=== PATIENT | female | born 1955 | race African-American/Black ===

== ENCOUNTER 2018-09-24 11:01 | Emergency (ER) | payer OTHER ==
[~2018-09-24] VITALS: Ht 154.9 cm; Wt 158.8 kg
[2018-09-24 11:45] LABS: MCH 27.7 pg (26.0-34.0); MCHC 33.2 g/dL (28.0-37.0); MCV 83.4 fL (80.0-100.0); PLATELET COUNT 397 thou/uL (150-400); RBC 2.18 mil/uL (4.20-5.00); RDW 19.1 % (10.5-14.5); WBC 10.7 thou/uL (4.0-11.0)
[2018-09-24 11:53] LABS: HEMATOCRIT 18.1 % (37.0-47.0)
[2018-09-24 13:00] LABS: ABSOLUTE NEUTROPHILS 7.7 thou/uL (1.4-8.2); ATYPICAL LYMPHS 2 %; METAMYELOCYTES 1 %; MYELOCYTES 1 %
[2018-09-24 13:01] LABS: ANISOCYTOSIS 2+; POLYCHROMASIA OCCASIONAL
[2018-09-24 13:08] VITALS: BP 124/53; BP 140/55; BP 145/64; BP 170/81; BP 180/83
[2018-09-24 16:15] VITALS: BP 150/62; BP 152/80; BP 153/47; BP 154/64
[2018-09-24 17:36] VITALS: BP 136/63
--- NOTE | 2018-09-29 10:03 | H ---
[facility] [place] [address] HISTORY AND PHYSICAL Name: HEIDY BOYD Room #: DEP Elizabeth#: [id number] Admission: 09/24/18 ������������������ Attend Phys: Discharge: 09/24/18 ������������������ Date of : 57 Report #: [id number] THIS REPORT FOR: //name// CC: FAM unknown Edward Wassermanhenrique DATE OF SERVICE: 09/24/2018 CHIEF COMPLAINT: Anemia. HISTORY OF PRESENT ILLNESS: The patient is a 63-year-old female who was transferred to the ER from [facility] for treatment of anemia. She is ventilator dependent due to a respiratory illness several months ago and has failed ventilator weaning. At this point, she has chronic tracheostomy feeding tube and chronic ventilator care at the [facility] terminal [facility] care facility. They noted lab work with a hemoglobin of around 5, and she was sent to the Emergency Room for transfusion. PAST MEDICAL HISTORY: Acute on chronic hypoxic respiratory failure, obesity hypoventilation syndrome. Chronic respiratory failure, ventilator dependent, tracheostomy dependent. Obstructive sleep apnea, morbid obesity, acute kidney injury with history of chronic kidney disease. She has a brief history of requiring dialysis, which now has been discontinued Diabetes type 2. Protein-calorie malnutrition. Anemia of chronic disease, history of sepsis. PAST SURGICAL HISTORY: Unknown. FAMILY HISTORY: Unknown. SOCIAL HISTORY: Unknown. ALLERGIES: Unknown. MEDICATIONS: List from the facility is not available. REVIEW OF SYSTEMS: She is unable to give review. OBJECTIVE: VITAL SIGNS: Temperature 37.1, pulse 55, respirations 18, blood pressure 135/76, O2 sat 96% on the ventilator. GENERAL: She is asleep, opens her eyes to her name, morbidly obese, resting on the ventilator. HEAD AND NECK: Unremarkable. LUNGS: Clear. HEART: Regular. ABDOMEN: Obese, soft, normoactive bowel sounds and PEG. [facility] [address] [place] [address] HISTORY AND PHYSICAL Name: HEIDY BOYD Room #: DEP [facility]#: [id number] Admission: 09/24/18 ������������������ Attend Phys: Discharge: 09/24/18 ������������������ Date of : 57 Report #: [id number] EXTREMITIES: 1+ edema. NEUROLOGIC: She moves extremities globally. Strength is about 3/5. Hemoglobin is 6. ASSESSMENT: 1. Anemia of chronic disease. 2. Chronic ventilator dependence. 3. Morbid obesity. 4. Chronic kidney disease. PLAN: She received 2-unit blood transfusion and then returned to the care facility for continued ventilator care. ��������������������������������������������� <ELECTRONICALLY SIGNED> ���������������������������������������� By: Justin Murphy MD ��������������������������������������������� 09/29/18 1003 [id number] [id number] Justin Murphy MD /nt
== END 2018-09-24 19:30 ==
LOC: ER 11:01
PROVIDERS: Emergency Medicine
DX: E11.22 Type 2 diabetes mellitus with diabetic chronic kidney disease (principal); N18.9 Chronic kidney disease, unspecified; D63.1 Anemia in chronic kidney disease; E66.01 Morbid (severe) obesity due to excess calories; G47.33 Obstructive sleep apnea (adult) (pediatric)

== ENCOUNTER 2018-09-28 08:29 | Inpatient (IN) | payer OTHER ==
[~2018-09-28] VITALS: Ht 160 cm; Wt 200.9 kg
--- NOTE | ~2018-09-28 | D ---
[facility] [place] [address] DISCHARGE SUMMARY Name: HEIDY BOYD Room #: 351-P [facility] IN .R.#: [id number] Admission: 09/28/18 Attend Phys: Altaf Hay MD Discharge: 10/14/18 Date of : 57 Report #: [id number] THIS REPORT FOR: //name// CC: Jose Hay DATE OF SERVICE: 10/14/2018 FINAL DIAGNOSES: 1. PEG tube malfunction. 2. Gastroparesis. 3. Chronic hypoxic respiratory failure. 4. Obesity hypoventilation syndrome. 5. Ventilator dependence. 6. Anemia of chronic disease. 7. Morbid obesity. 8. Hypertension. 9. Severe protein-calorie malnutrition. 10. Abdominal wall infection. PROCEDURES: 1. IR replacement of PEG tube. 2. Abdominal wall ultrasound. HOSPITAL COURSE: The patient was admitted from her long-term care ventilator unit for evaluation of a PEG tube malfunction. Initial concern was infection along the abdominal wall. Neither KUB nor abdominal wall ultrasound confirmed a mass or abscess. She was treated with empiric antibiotics. It was clear that there was bile type gastric drainage through the PEG stoma. She was followed by the Surgery and GI services. Ultimately their decision, there was a significant degree of gastroparesis and she failed medical treatment with Reglan and erythromycin. The recommendation was IR exchange the PEG tube for a combination of J-tube, G-tube which was performed. She tolerated the tube feeding through the J-tube. She continued to have drainage through the PEG stoma. PEG per the gastric port was connected to suction, which seemed to help control it. She had intermittent fevers and was followed by the Infectious Disease and antibiotics were ordered accordingly. She had a followup fever and there was gram-positive cocci growing from the blood. Vancomycin was added. She was not weanable from the ventilator, but followed by the Pulmonary Service there was concern about the tracheostomy cuff leak, but she was seen by ENT and they did not recommend changing at this point as she was ventilating adequately. She received 3 units of blood transfusion. Hemoccults were never obtained despite orders. GI did not feel endoscopy was indicated. Overall, her condition remained marginal and guarded prognosis given her respiratory failure and morbid obesity. DISPOSITION: She is being transferred to [facility] facility under the care [address] [address] DISCHARGE SUMMARY Name: HEIDY BOYD Room #: 351-P [facility] IN .R.#: [id number] Admission: 09/28/18 Attend Phys: Altaf Hay MD Discharge: 10/14/18 Date of : 57 Report #: [id number] Rosalio Gonzalez. She will be followed by Pulmonary, ID and Internal Medicine. She continues J-tube feedings with G-tube to suction. I have signed her transfer medications and orders for ventilator care and antibiotics. Her prognosis is poor. By: [id number] Justin Murphy MD /guillermo
[2018-09-28 08:30] VITALS: BP 151/70
[2018-09-28] MEDS ORDERED: LEVEMIR SUBQ (09:02)
[2018-09-28] MEDS ORDERED: GLUCOSE BITS1 GM PO (09:03)
[2018-09-28] MEDS ORDERED: GLUTOSE GEL 1515 G1 PO (09:03)
[2018-09-28] MEDS ORDERED: GLUCAGEN1 M2 INJECTION (09:04)
[2018-09-28] MEDS ORDERED: PEPCID20 MG PER TUBE (09:04)
[2018-09-28] MEDS ORDERED: ASPIR 8181 MG PER TUBE (09:04)
[2018-09-28] MEDS ORDERED: TOPROL XL25 MG PER TUBE (09:05)
[2018-09-28] MEDS ORDERED: PREDNISONE 5 MG5 M1 PER TUBE (09:05)
[2018-09-28] MEDS ORDERED: VANCO 1 GR1 GM/250 M IVPB (09:06)
[2018-09-28] MEDS ORDERED: VALPROIC A250 MG/51 PER TUBE (09:06)
[2018-09-28] MEDS ORDERED: ATIVAN0.5 MG PER TUBE (09:07)
[2018-09-28] MEDS ORDERED: ENOXAPARIN40 MG/0.1 SUBQ (09:08)
[2018-09-28] MEDS ORDERED: DIPHEDRYL12.5 MG/2 PER TUBE (09:09)
[2018-09-28] MEDS ORDERED: MAPAP500 MG/15 PER TUBE (09:09)
[2018-09-28] MEDS ORDERED: IPRATROPIU0.2 MG/1 M INH (09:10)
[2018-09-28 09:25] LABS: HEMATOCRIT 22.1 % (37.0-47.0); HEMOGLOBIN 7.2 gm/dL (12.0-15.0); MCH 27.2 pg (26.0-34.0); MCHC 32.3 g/dL (28.0-37.0); MCV 84.1 fL (80.0-100.0); PLATELET COUNT 347 thou/uL (150-400); RBC 2.63 mil/uL (4.20-5.00); RDW 18.7 % (10.5-14.5); WBC 11.9 thou/uL (4.0-11.0)
[2018-09-28 09:33] LABS: CALCIUM 8.8 mg/dL (8.5-10.1); CREATININE 0.8 mg/dL (0.6-1.0); POTASSIUM 4.5 mmol/L (3.5-5.1)
[2018-09-28 09:51] LABS: ABSOLUTE NEUTROPHILS 9.4 thou/uL (1.4-8.2); ANISOCYTOSIS 1+; ATYPICAL LYMPHS 1 %; LARGE PLATELETS OCCASIONAL
[2018-09-28 09:52] LABS: POLYCHROMASIA OCCASIONAL
[2018-09-28 17:50] VITALS: BP 151/81
[2018-09-28 19:04] VITALS: BP 153/85
--- NOTE | 2018-09-28 19:50 | NUR ---
PATIENT ADMIT TO UNIT AT 1800. A/O ON VENT A/C. ANXIOUS. WILL KEEP MONITOR.
[2018-09-28] MEDS ORDERED: DILAUDID 2 MG TA2 MG (22:34)
[2018-09-28 23:37] VITALS: BP 153/72
[2018-09-29 03:34] VITALS: BP 153/71
--- NOTE | 2018-09-29 04:27 | NUR ---
FINISHED ADMISSION PROCESS AND MED REC ACCORDING TO PAPERWORK SENT FROM [facility]. PT DID NOT HAVE ANY MEDICATIONS. DAUGHTER OF PATIENT WAS AT NURSES STATION 2x BEFORE 2100 ASKING FOR PAIN MEDICATION AND ANXIETY MEDICATION. CALL WAS PLACED TO DR. HUIZAR. RECEIVED ORDERS FOR LORAZEPAM IV 0.25 Q6 AND NS FOR 75ML. GAVE 1X DOSE OF LORAZEPAM AND PT RESTED COMFORTABLY ON VENT UNTIL ABOUT 2445 AND BECAME VERY LOUD. MOST OF THE WORDS WERE NOT UNDERSTANDABLE. AT 0145 GAVE DOSE OF LORAZEPAM AND PT WENT BACK TO SLEEP. JESUS ALBERTO IN PLACE. DR. MCKEON CAME BY FOR CONSULT AND ORDERS PLACED FOR X RAY IN THE AM. CHANGED LUBER CAPS ON PICC THEY WERE FILLED WITH DRIED BLOOD AND TAPE. PICTURES OF WOUNDS DOCUMENTED AND WOUND CARE CONSULTED. JESUS ALBERTO IN PLACE. HOURLY ROUNDING.
--- NOTE | 2018-09-29 06:45 | NUR ---
0600 BLOOD SUGAR RESULTED IN 57, PLACED PT ON HYPOG PROTOCOL, GAVE PT 100ML OF D10. RECHECKED AFTER INFUSED 20 MIN LATER. BLOOD SUGAR 73. FOLLOWING PROTOCOL. WILL PASS THIS INFORMATION TO NEXT SHIFT.
[2018-09-29 07:29] VITALS: BP 175/89
[2018-09-29 11:20] VITALS: BP 171/77
--- NOTE | 2018-09-29 12:00 | NUR ---
Nutrition: RD recommends Vital High Protein formula for PEG feedings, when safe to resume G-tube use per provider discretion, as [facility] does not carry pt's usual formula Promote with Fiber. Per facility, goal rate is 45 ml/hr. When given OK to resume PEG feeds, consider starting at 1/2 goal rate (~20 ml/hr) and increase if tolerating after 6-8 hrs to goal of 45 ml/hr with 100 ml water flushes q 4 hrs.
[2018-09-29 15:33] VITALS: BP 167/101
--- NOTE | 2018-09-29 15:58 | NUR ---
INITIAL ASSESSMENT: Received consult due to pt beind admitted from [facility]. SW reviewed chart and spoke with nursing. Pt was admitted due to abdominal wall abscess/sepsis. ID and surgery consulted. Pt with hx of chronic hypoxic respiratory failure. Pt has trach and peg in place and is vent dependent. Pt's dtr states that pt was originally at [facility] and then discharged [facility] and then went to [facility] before discharging to [facility] then the SNF. Per Erika, pt was in the SNF at [facility] for rehab services, with the plan to return to LTAC for continued vent weaning in the future. Pt's dtr confirms plan to return to [facility] when medically stable. SW is following to assist as needed with discharge planning.
--- NOTE | 2018-09-29 17:25 | NUR ---
ASSUMED CARE OF PT AT 0700. PT ALERT AND ORIENTED X2 - AWARE SHE IS IN HOSPITAL - COMPLAINS OF GENERALIZED PAIN AND ANXIETY. MOVED TO BARIATRIC BED. INTERDRY APPLIED TO FOLDS. OK BY SURGERY AND HOSPITALIST TO RESUME TUBE FEED. CURRENTLY RUNNING AT HALF RATE. SOME TUBE FEED LIKE DRAINAGE FROM ABDOMINAL WOUND. DRESSED WET TO DRY WITH SALINE GAUZE. SUCTIONED PRN - SCANT SECRETIONS. TEMP MAX 99.6. BLOOD SUGARS WELL CONTROLLED. WILL CONT TO MONITOR.
[2018-09-29 19:45] VITALS: BP 184/97
--- NOTE | 2018-09-29 20:25 | HC ---
[facility] [place] [address] CONSULTATION Name: HEIDY BOYD Room #: 351-P ADM IN M.R.#: [id number] Admission: 09/28/18 Attend Phys: Altaf Hay MD Discharge: Date of : 57 Report #: [id number] THIS REPORT FOR: //name// CC: Jose Hay DATE OF SERVICE: 09/28/2018 INFECTIOUS DISEASE CONSULTATION REASON FOR CONSULTATION: I was asked to evaluate concerning fever, increased swelling with no drainage from her left abdomen. HISTORY OF PRESENT ILLNESS: The patient is a 63-year-old morbidly obese woman, over 500 pounds with chronic venous stasis disease that is including most of her left side, for the patient lies on that side continuously. She is ventilatory dependent, was hospitalized on 09/24/2018 with anemia, received blood transfusion, was transferred back to [facility]. She has been on vancomycin. I am unclear as to the duration and indication. She developed increased fever, chills associated with drainage from her left abdomen. Two wounds have developed with a moderate amount of drainage. Going back a month ago, she was transferred from [facility] to [facility]. It was evident that she had dislodged her PEG tube in transit. Tube feeding was held and she was ultimately transferred to [facility], where she had the PEG tube revised. Family states that she underwent surgical treatment, but I am unclear as to the specifics of this. Subsequently, now she is draining from her left abdomen. She denies any significant pain. She has had intermittent fever. Remains stable on 30% FiO2 on the ventilator. She has obstructive sleep apnea and hypoventilation syndrome. She has a previous history of acute renal failure that did require dialysis, now has stable renal function. REVIEW OF SYSTEMS: The patient also has a PICC in her right upper extremity and indwelling Montalvo catheter. The 10-point review of systems was otherwise negative other than what is described above. PAST MEDICAL HISTORY: Respiratory failure; obesity; previous renal failure; diabetes; malnutrition; anemia of chronic disease; chronic lymphedema, predominantly on her left side. ALLERGIES: None known. MEDICATIONS: As noted on her MAR that were reviewed including vancomycin. She was given Zosyn in the Emergency Room. She is also on prednisone 5 mg a day. FAMILY HISTORY: Noncontributory. [address] [address] CONSULTATION Name: HEIDY BOYD Room #: 351-P [facility] IN .R.#: [id number] Admission: 09/28/18 Attend Phys: Altaf Hay MD Discharge: Date of : 57 Report #: [id number] SOCIAL HISTORY: Nonsmoker, no significant alcohol intake. PHYSICAL EXAMINATION: VITAL SIGNS: Currently, afebrile with temperature up to 101.2 degrees, hemodynamically stable on 30% FiO2, tracheostomy, morbidly obese with very large left breast with pitting edema. Left abdominal pannus with pitting edema and two sinus tracts with perez drainage from them, has characteristics of tube feeding in color. Markedly indurated left abdomen. Unable to roll her over in the bed due to her size. No other lesions noted. No palpable adenopathy. HEENT: Eyes without scleral icterus. Mouth without mucositis. Tracheostomy was midline without erythema or drainage. LUNGS: Decreased breath sounds bilaterally. HEART: Decreased heart tones due to her obesity. ABDOMEN: Nontender. PEG site was without drainage, tube measured at marked 7 on the tube. Also had hernia in periumbilical region, which I was unable to reduce. EXTREMITIES: Without clubbing or cyanosis. NEUROLOGIC: Mood was normal. The patient was able to talk over her trach. LABORATORY STUDIES: Sodium 137, potassium 4.5, bicarbonate 33, creatinine 0.8. Lactate 0.8. Hemoglobin 7.2, WBC 11.9, platelets 347,000, 79% neutrophils, 18% lymphs. Blood cultures are pending. Abdominal sinus tract culture pending. Chest x-ray, bilateral perihilar infiltrates. IMPRESSION: 1. A 63-year-old morbidly obese woman with chronic respiratory failure. 2. Abdominal wall abscess, concerning for possible intra-abdominal connection due to her previous PEG tube issues. It is also possible that all this was above the fascia from her previous PEG tube issue and is now draining out. Other consideration would be malpositioning of her current tube, although the patient does not act like she has peritonitis on examination. She does not appear toxic, although she is running low-grade fever and has a very mild leukocytosis. 3. Diabetes. 4. Morbid obesity. 5. Chronic lymphedema involving the left chest and abdomen. RECOMMENDATIONS: I have discussed in detail with Emergency Room staff. General Surgery has been consulted. The patient is too big to go into a CT scanner, might be best to give some contrast through the PEG tube and just assess her upper GI tract a bit before further intervention. Otherwise, could also do a sinogram to the left abdomen if necessary. Hopefully, this is all extraperitoneal collection and will be able to manage this with incision and drainage of the abdominal wall. She also has ventral hernia that will need to [facility] [address] [place] [address] CONSULTATION Name: HEIDY BOYD Room #: 351-P ADM IN .R.#: [id number] Admission: 09/28/18 Attend Phys: Altaf Hay MD Discharge: Date of : 57 Report #: [id number] be assessed. We will control diabetes. Continue with broad antibiotic coverage pending culture results. <ELECTRONICALLY SIGNED> By: Bandar Gonzalez MD 09/29/18 2025 [id number] [id number] Bandar Gonzalez MD /nt
--- NOTE | 2018-09-30 00:55 | NUR ---
PT AGGITATION INCREASING THROUGHOUT SHIFT. PT PULLING AT TELE LINES, CONTINOUS PULSE OX LINE, AND TRACH TUBE. PT BECOMING MORE VOCAL AND BUCKING THE VENT, TO WHERE IT ALARMS. CALLED DR. STATON TO GET ANXIETY MEDICATION AND RESTARTING PT VALPROIC ACID. RECEIVED ORDERS AND RESTARTED BOTH. WILL CONTINUE TO ASSESS.
[2018-09-30 03:29] LABS: HEMATOCRIT 21.4 % (37.0-47.0); MCH 27.8 pg (26.0-34.0); MCHC 32.8 g/dL (28.0-37.0); MCV 84.8 fL (80.0-100.0); RBC 2.53 mil/uL (4.20-5.00); WBC 10.1 thou/uL (4.0-11.0)
[2018-09-30 03:34] LABS: CALCIUM 8.9 mg/dL (8.5-10.1); CREATININE 0.7 mg/dL (0.6-1.0); POTASSIUM 3.9 mmol/L (3.5-5.1)
[2018-09-30 04:36] VITALS: BP 181/97
[2018-09-30 07:32] VITALS: BP 182/85
--- NOTE | 2018-09-30 09:04 | H ---
[facility] [place] [address] HISTORY AND PHYSICAL Name: HEIDY BOYD Room #: 351-P ADM IN M.R.#: [id number] Admission: 09/28/18 Attend Phys: Altaf Hay MD Discharge: Date of : 57 Report #: [id number] THIS REPORT FOR: //name// CC: Jose Hay DATE OF SERVICE: 09/28/2018 CHIEF COMPLAINT: Abdominal pain. HISTORY OF PRESENT ILLNESS: The patient was sent back from her long-term care ventilator unit for evaluation of abdominal pain. She has a longstanding respiratory failure patient who has failed ventilator weaning and is confined to bed with a tracheostomy tube ventilator and PEG tube. She was briefly hospitalized for a blood transfusion last week due to anemia of chronic disease. The staff noted some swelling of her abdominal wall in the left lower quadrant and some drainage around the PEG tube. There was concern of infection or the tube being in place and she was sent to the Emergency Room. So far, she has been evaluated by the surgical staff and ID. KUB with Gastrografin study has been performed, which shows the PEG tube to be within the stomach and there was no mention of leakage of contrast from the stomach. PAST MEDICAL HISTORY: As above. FAMILY HISTORY: Unknown. SOCIAL HISTORY: Unknown. ALLERGIES: Per the prison list. MEDICATIONS: See the prison list. REVIEW OF SYSTEMS: She complains of generalized pain. She talks over the ventilator. Denies chest pain or vomiting. PHYSICAL EXAMINATION: VITAL SIGNS: See the nursing notes. GENERAL: She is awake and alert. HEAD AND NECK: Unremarkable with trach in place. LUNGS: Clear. HEART: Regular. ABDOMEN: Obese, soft, normoactive bowel sounds. There is purulent type drainage from the gastric PEG stoma. EXTREMITIES: Showed no edema. NEUROLOGIC: She moves all extremities. [facility] [address] [place] [address] HISTORY AND PHYSICAL Name: HEIDY BOYD Room #: 351-P [facility] IN [facility]#: [id number] Admission: 09/28/18 Attend Phys: Altaf Hay MD Discharge: Date of : 57 Report #: [id number] ASSESSMENT: 1. Abdominal wall infection. 2. Chronic ventilator dependence. 3. Chronic hypoxic respiratory failure. 4. Obesity hypoventilation syndrome. 5. Anemia of chronic disease. PLAN: We will continue IV antibiotics and local wound care. She has had a small incision, debridement at the bedside from the surgical team and we will allow them for followup. Further discussions with them regarding additional workup are indicated. <ELECTRONICALLY SIGNED> By: Justin Murphy MD 09/30/18 0904 [id number] 1526 Justin Murphy MD /nt
--- NOTE | 2018-09-30 09:58 | NUR ---
DISCHARGE PLANNING. PATIENT ADMITTED FROM [facility] UNIT. PLAN IS FOR PATIENT TO RETURN TO [facility] ONCE MEDICALLY READY. CLINICAL INFORMATION FAXED TO [facility] INTAKE LIAISON. UNIT SW AWARE. FOLLOWING TO ASSIST.
--- NOTE | 2018-09-30 13:34 | NUR ---
SW reviewed chart and spoke with nursing. Pt to have ultrasound today and may need further I&D. Clinical updates faxed over to [facility] for review. Plan is for pt to return to [facility] SN[facility] when medically stable. ERON is following to assist as needed with discharge planning.
[2018-09-30 15:40] VITALS: BP 174/81
[2018-09-30 19:45] VITALS: BP 163/91
--- NOTE | 2018-09-30 19:48 | NUR ---
pt is continuing on vent at CMV mode , o2 30%, pt knows her name and person, but pt is agitation at germán, pt's vs and o2sat are stable , RN has reproted DR pt's tube feeding is leaking arund the PEG site, KUB has done, new order, hold tbe feeding and per tube medications, pt starts IV flud and continuing IV abt, pt's family stay at bedside.
[2018-09-30 23:21] VITALS: BP 149/78
--- NOTE | 2018-09-30 23:46 | NUR ---
ASSUMED CARE AT 1900, START OF SHIFT ASSESSMENT COMPLETED. PT AGITATED AND RESTLESS, PULLING AT TRACH AND J-TUBE, PULLING GOWN OFF, AND RESISTANT TO STAFF CARES. DID NOT WANT TO BE TURNED BECAUSE SHE C/O LEG PAIN. HAD A LARGE LIQUID BM; COMPLETE BED CHANGE AND BATH COMPLETED. GIVEN IV ATIVAN FOR AGITATION. TRACH IN PLACE, SMALL AMOUNT OF THICK SPUTUM SUCTIONED. IV FLUIDS INFUSING; GRANDA DRAINING CLEAR YELLOW URINE. PURULENT DRAINAGE AT LEFT ABD WOUND. YELLOW-WHITE DRAINAGE AROUND J-TUBE; PER KUB TUBE IS PROPERLY IN PLACE AND PER DR. ISSA' NOTE, IT IS OK TO USE. GAVE HS MEDS VIA TUBE, NO RESIDUAL, BUT DID NOT RESUME TUBE FEEDING. MIDNIGHT ASSESSMENT, PT MORE CALM AND PULLING LESS AT TUBES. C/O MID BACK PAIN, GIVEN DOSE OF IV DILAUDID. PT RESTING MORE COMFORTABLY AT THIS TIME. WILL CONTINUE TO MONITOR.
[2018-10-01 05:10] VITALS: BP 140/88
[2018-10-01 07:32] VITALS: BP 194/86
[2018-10-01 11:17] VITALS: BP 186/92
--- NOTE | 2018-10-01 12:12 | NUR ---
ERON reviewed chart and spoke with nursing and attending physician. Pt is slowly progressing towards goals for discharge. ERON discussed case with [facility] liaison. Plan is for pt to return to [facility] when medically stable for discharge. ERON received message from pt's dtr, Erika, requesting documentation from [facility] to provide to pt's bank. Erika is needing to pay pt's bills. Pt has DPOA ppwk that was completed at [facility]. The bank is still requesting documentation to clarify pt's current condition and location. ERON discussed with Director of Case Mgmt. ERON is following to assist as needed with discharge planning.
[2018-10-01 15:42] VITALS: BP 158/82
--- NOTE | 2018-10-01 18:19 | NUR ---
Assumed care approx. 0700 this AM. Patient agitated, restless, and tearful much of the shift. Patient placed on restraints at 1600 today as she pulled out her PEG tube, and was attempting to pull on her trach and central line. A message was left with family to call the nurse back for updates when available. Patient given a onetime dose of haldol per orders, then IV dilaudid and ativan orders were reinitiated for agitation and pain per Dr. Murphy. An order was given to restart fluids patient was previously on until tube feed was restarted but YAMILA Mendez ordered a KUB and showed proper placement of PEG tube so feeding was restarted and H20 flushes given; therefore, fluids were not restarted. Dr. Peña and YAMILA Mendez were at bedside post peg tube removal to assess the situation, and agreed it was safe to restart feedings after the KUB x-ray. Patient on 30% FiO2 and tolerates well. O2 sats remain adequate when patient isn't getting worked up and trying to speak. Patient oriented to person only and very confused much of the shift. Wounds on left calf and LUQ of abd assessed, pictures taken today. See wound care interventions for info. Tube feed restarted at 30 mls/hr per YAMILA Mendez. Will pass on to rn shift mgr to advance by 10 mls/hr as tolerated as the order states. Q4H flushes and meds given through peg tube. Patient appears to be tolerating well, although there remains to be yellowish drainage from peg site. Fall precautions in place. Slow progression toward plan of care goals.
[2018-10-01 19:20] VITALS: BP 189/111
[2018-10-01 21:03] VITALS: BP 193/90
[2018-10-02 00:10] VITALS: BP 152/82
[2018-10-02 03:49] VITALS: BP 188/86
--- NOTE | 2018-10-02 05:39 | NUR ---
ASSUMED CARE AT 1900, ASSESSMENTS COMPLETED PER PROTOCOL. PT STABLE ON VENT, MAINTAINING SATS IN HIGH 90'S, FREQ SUCTION FOR THICK SECRETIONS, ORAL CARE COMPLETED REGULARLY; PT NOTED TO HAVE MORE COARSE THROAT SOUNDS THIS AM COMPARED TO EARLIER IN SHIFT. BP ELEVATED EARLY IN SHIFT, PT RECEIVED SCHEDULED DOSE METOPROLOL AND PRN IV PAIN MEDICATIONS WHICH REDUCED BP. REDUCED LEAKAGE FROM AROUND THE PEG SITE, BUT DOES INCREASE AFTER A TURN; INCREASED RATE OF TUBE FEEDING TO 40 ML/HR AT MIDNIGHT; Q4 HOUR WATER FLUSHES WITH BENOPROTEIN SUPPLEMENT, Q6 BLOOD SUGARS STABLE. TWO LIQUID BM'S OVERNIGHT. IV ABX INFUSING ORDERED. NO OTHER CONCERNS, WILL CONTINUE TO MONITOR.
[2018-10-02 07:24] VITALS: BP 179/95
--- NOTE | 2018-10-02 12:52 | NUR ---
SW reviewed chart and spoke with nursing and attending physician. Pt is progressing towards goals for discharge. Pt to have video swallow today. Discharge back to [facility] is anticipated for tomorrow. SW updated [facility] liaison. SW is following to assist as needed with discharge planning.
--- NOTE | 2018-10-02 15:28 | NUR ---
ASSUME CARE FOR PATIENT AT 0700. PATIENT HAD VIDEO SWALLOW WITH SPEECH THERAPY TODAY AND PASSED. PATIENT HAS HAD LIMITED SECRETIONS WITH SUCTIONING. CONTINUED ANTIBIOTIC THERAPY, ERTHROMYCIN, AND FLUIDS TODAY SUCCESSFULLY. CONTACTED IV TEAM IN REGARDS TO CENTRAL LINE, TWO LUMENS HAD NO BLOOD RETURN. IV TEAM INFORMED ME SHE WOULD VISIT THE PATIENT TODAY. PHYSICIANS CONTINUE TO SUSPECT DRAINAGE FROM PEG TUBE SITE ARE FROM PREVIOUS REVISION AFTER ANOTHER XRAY YESTERDAY SHOWED THE PEG TUBE CORRECTLY PLACED. PATIENT REACHED GOAL OF 50ML/HR FOR TUBE FEEDING. CASE MANAGEMENT ANTICIPATES DISCHARGE TO [facility] SOON (LTAC), MAGDALENA FROM [facility] CALLED TODAY AND I TOLD HER THAT DISCHARGE TOMORROW IS POSSIBLE.
[2018-10-02 15:43] VITALS: BP 146/92
[2018-10-02 19:20] VITALS: BP 167/73
[2018-10-03] VITALS (7 sets, daily range): BP systolic 147–198; BP diastolic 65–104
--- NOTE | 2018-10-03 01:24 | NUR ---
PATIENT IS ALERT TIMES PERSON AND PLACE. PATIENT CAN BE IMPULSIVE AND PULL AT EQUIPMENT. RESTRAINTS IN PLACE. PATIENT HAS A TRACH AND IS ON THE VENT. PATIENT HAS PEG TUBE WITH TUBE FEED GLUCERNA 1.2 RUNNING AT 50ML/HR. PATIENT HAS 150ML Q4H WITH BENEPROTIEN. PATIENT IS Q 2 TURN. BATH WAS GIVEN ORAL CARE Q2H. PATIENT IS INCONTIENT AND HAS A GRANDA. PATIENTS PAIN IS TREATED WITH PAIN MEDICATION. PATIENT REFUSED SCDS "THEY ARE TO PAINFUL". PATIENT IS Q6H ACCUCHECKS. LBM WAS THE 8TH. PATIENT IS RESTING COMFORTABLY IN BED. WCM. PATIENT IS PRGRESSING TO GOALS. PLAN TO DC TODAY.
[2018-10-03 03:47] LABS: MCH 27.6 pg (26.0-34.0); MCHC 32.5 g/dL (28.0-37.0); MCV 84.9 fL (80.0-100.0); RBC 2.15 mil/uL (4.20-5.00); RDW 18.5 % (10.5-14.5)
[2018-10-03 03:49] LABS: HEMATOCRIT 18.2 % (37.0-47.0); HEMOGLOBIN 5.9 gm/dL (12.0-15.0)
[2018-10-03 03:55] LABS: CALCIUM 8.2 mg/dL (8.5-10.1); CREATININE 0.7 mg/dL (0.6-1.0); POTASSIUM 3.4 mmol/L (3.5-5.1)
--- NOTE | 2018-10-03 07:39 | NUR ---
PATIENT VOMIT DARK YELLOW FLUID. PEG TUBE FEEDING STOPPED RESIDUALS NEGATIVE. PATIENT SPIKED A TEMP 100.6. BP ELEVATED. PROVIDER NOTIFED. MEDICATIONS ORDERED. PASSED ON REPORT. WCM.
[2018-10-03] MEDS ORDERED: IPRATROPIU0.2 MG/1 M INH (11:25)
[2018-10-03] MEDS ORDERED: VANCO 1 GR1 GM/250 M IVPB (11:26)
[2018-10-03] MEDS ORDERED: AMPICILLIN-SULB3 GM IV (11:26)
[2018-10-03] MEDS ORDERED: REGLAN 10 MG TA10 MG PO (11:27)
[2018-10-03] MEDS ORDERED: [UNRECOGNIZED DRUG - OTHER] IV (11:28)
[2018-10-03] MEDS ORDERED: LOPRESSOR100 M1 PER TUBE (11:28)
[2018-10-03] MEDS ORDERED: SEROQUEL 25 MG25 M1 PER TUBE (11:29)
[2018-10-03] MEDS ORDERED: DILAUDID 2 MG TA2 MG PO (11:29)
--- NOTE | 2018-10-03 15:20 | NUR ---
ERON reviewed chart and spoke with nursing and attending physician. Pt medically stable for discharge to LT[facility] today. [facility] liaison onsite this morning and confirmed they are able to accept today. Discharge orders/summary completed. Clinical updates requested by [facility] campa and faxed by traffic and transport planner. ERON notified by [facility] that pt does not meet LTAC criteria any longer. They would accept pt back to the SNF on Saturday. Pt will need to be out of restraints. Pt needs one more week of IV abx per ID. ERON discussed case with ID physician and attending physician. Restraints to be discontinued later this afternoon. Pt will be re-evaluated on Saturday. ERON discussed case with Director of Case Mgmt. ERON spoke with pt's dtr, Erika, via phone to provide update and notify of anticipated discharge back to [facility] planned for Saturday. Erika is aware and agreeable with discharge plan. ERON is following to assist as needed with discharge planning.
--- NOTE | 2018-10-03 16:17 | NUR ---
ASSUMED CARE OF PATIENT AT 0700. PATIENT REPORTEDLY VOMITED A COUPLE TIMES LAST NIGHT AND VOMITED AGAIN SHORTLY AFTER THE BEGINING OF SHIFT. SINCE THEN THE NAUSEA HAS SEEMINGLY BEEN WELL CONTROLLED WITH ZOFRAN. PATIENT HAD ULTRASOUND TODAY THAT DID NOT SHOW ANY RESIDUAL FLUID OR ANY UNEXPECTED MASS. PATIENT ALSO HAD KUB TODAY. PATIENT RESUMED TUBE FEEDING TODAY AT 25ML/HR. PATIENT HAD 1 BOWEL MOVEMENT IN THE BED AND NURSING STAFF HELPED CLEAN HER AND THE BED. RESTRAINTS HAVE BEEN DISCONTINUED SO THAT PATIENT MAY BE DISCHARGED BY SATURDAY TO [facility] ([facility] PATIENT HAS BEEN STABLE WITH TRACH BUT R/T AND ENT SAID IT WOULD BE BETTER IF IT WAS REPLACED. ENT, RT, NURSING STAFF ATTEMPTED REPLACEMENT OF TRACH TODAY BUT WERE UNSUCCESSFUL AND DECIDED TO LEAVE CURRENT ONE IN.
[2018-10-04 04:37] LABS: HEMATOCRIT 24.5 % (37.0-47.0); HEMOGLOBIN 7.9 gm/dL (12.0-15.0); MCH 26.8 pg (26.0-34.0); MCV 83.7 fL (80.0-100.0); RBC 2.93 mil/uL (4.20-5.00); RDW 17.8 % (10.5-14.5); WBC 15.3 thou/uL (4.0-11.0)
[2018-10-04 04:38] VITALS: BP 165/70
--- NOTE | 2018-10-04 05:45 | NUR ---
PATIENT IS ADVANCING SLOWLY IN HER CARE PLAN. VITAL SIGNS STABLE. NURSE PERCEIVED AND TREATED PAIN ON BEHALF OF PATIENT. ORIENTED TO SELF AND CONFUSED, PATIENT IS UNABLE TO PARTICIPATE IN CARE OR CALL APPROPRIATELY FOR NEEDS. PATIENT REMAINS IMPULSIVE AND HAS TO BE RE DIRECTED OFTEN TO AVOID PULLING ON MEDICAL EQUIPMENT. BREATHING STABLE ON VENTILATOR EVIDENCED BY CONTINUOUS SATURATION MONITOR. CONTINUE PLAN OF CARE.
[2018-10-04 07:17] VITALS: BP 167/67
[2018-10-04 11:16] VITALS: BP 180/82
[2018-10-04 15:00] VITALS: BP 156/71
--- NOTE | 2018-10-04 16:42 | NUR ---
PT HAD RESP DISTRESS THIS AFTERNOON. 02 SAT WENT DOWN TO 35% TRACH VENT. PT BECAME UNRESPONSIVE. CODE BLUE CALLED.. PT STARTED TO COME AROUND AFTER BEING BAGGED FOR ABOUT 10MIN. PT SUCTIONED, STAT CHEST XRAY DONE (SEE REPORT). PT BACK TO BASELINE NOW. NOTIFIED NNO GIVEN. WILL CONTINE TO MONITOR.
[2018-10-04 20:13] VITALS: BP 150/78
--- NOTE | 2018-10-04 23:19 | NUR ---
LARGE AMOUNT OF OUTPUT FROM GASTRIC TUBE, PER DEPENDENT DRAINAGE TONIGHT. 800 ML OF PURULENT GREEN FLUID WITH CHUNCKS OF DARK GREEN PIECES. PT IS HAVING NO PAIN AND IS NOT NAUSEAOUS.
--- NOTE | 2018-10-05 00:31 | NUR ---
CONTINUE TO HOLD TUBE FEED. SHE HAS HAD HER MEDICATIONS PER TUBE TONIGHT. CLAMPED THE TUBE WHILE SHE ABSORBS THE MEDICATION. CONTINUES TO NEED SUCTIONING FREQUENTLY. SHE HAS HAD NO PAIN TONIGHT, AND HAS NOT RECIEVED ANY PAIN MEDICATION.
[2018-10-05 05:12] LABS: HEMATOCRIT 22.1 % (37.0-47.0); MCH 26.8 pg (26.0-34.0); MCHC 31.7 g/dL (28.0-37.0); MCV 84.6 fL (80.0-100.0); RBC 2.62 mil/uL (4.20-5.00); RDW 17.5 % (10.5-14.5); WBC 14.1 thou/uL (4.0-11.0)
[2018-10-05 05:32] LABS: CALCIUM 8.5 mg/dL (8.5-10.1); CREATININE 0.6 mg/dL (0.6-1.0); POTASSIUM 3.3 mmol/L (3.5-5.1)
[2018-10-05 05:57] VITALS: BP 150/82
--- NOTE | 2018-10-05 06:19 | NUR ---
continues on 40 fio2 on venilator. she is comfortable with her breathing. however, she needs frequent suctioning for large amount of sputum. turned and sheet changed under her and backside cleaned. she complained of some pain after her turning, gave her per tube hydromorphone and clamped tube after. continues to have large amounts of green fluid into stomach. when she is layed down flat her pegtube leaks some purlent fluids around site. progressing very slowly toward discharge goals.
[2018-10-05 07:13] VITALS: BP 121/62
[2018-10-05 11:33] VITALS: BP 140/50
[2018-10-05 15:16] VITALS: BP 144/62
--- NOTE | 2018-10-05 16:32 | NUR ---
Assumed care approx. 0700 this AM. Patient was calm and oriented to person/place this morning, but since then has become increasingly agitated throwing pillows and blankets while yelling out and crying. Patient remains very confused and forgetful of her situation. Patient titrated back down from 40% to 30% FiO2 since shift change this AM. Patient O2 sats remain high 90's to 100%. Dr. Hernandez and Dr. Murphy gave verbal orders to remain holding the tube feed and water flushes. Dr. Murphy ordered D5 1/2 NS w/ KCL for the time being as the patient has no other form of nutritional intake. No nausea or vomiting this shift. PEG tube remains dependent to drainage with hutton bag per orders. PEG tube site still has yellow drainage weeping from around the insertion site. Pain treated with PRN PO dilaudid and anxiety/agitation with scheduled PO ativan. Fall precautions in place. Slow progression toward plan of care goals.
[2018-10-05 20:06] VITALS: BP 151/69
[2018-10-06 04:45] VITALS: BP 151/60
--- NOTE | 2018-10-06 05:12 | NUR ---
PT MAKING SLOW PROGRESS TOWARDS GOALS. PT FUSSY AT TIMES THROUGHOUT THE NIGHT. PT FREQUENTLY TALKING AND MUCH IS NON-UNDERSTANDABLE. FREQUENT VENT ALARMS FOR "LEAK." RT INFORMED AND AWARE. LUNGS CLEAR AT TIMES, COARSE AT TIMES. DIMINISHED IN BOTH BASES. MINIMAL AMOUNT OF CLEAR/WHITISH SPUTUM.
[2018-10-06 07:32] VITALS: BP 129/47
[2018-10-06 11:29] VITALS: BP 175/80
--- NOTE | 2018-10-06 12:53 | NUR ---
ERON reviewed chart and spoke with nursing and attending physician. Pt is not medically stable for discharge back to [facility] today. Pt to have G-J tube placed in IR. SW updated [facility] liaison. special events planner to fax updates to [facility] for review. Plan is for pt to discharge back to [facility] SNF when medically stable. ERON is following to assist as needed with discharge planning.
--- NOTE | 2018-10-06 13:46 | NUR ---
WOUND CONSULT; THE LLQ WOUND WAS ASSESSED; APPROX. 1CM IN DEPTH, WITH SOME SLOUGH PRESENT. THE JTUBE SITE WAS ASSESSED WITH SOME EVISERATION AROUND THE JTUBE. THE LEFT CALF IS MACERATED WITH SLOUGH AND POSSIBLE TENDON PRESENT. RECOMMENDATION; CONSULT DR JESSICA BARDALES. DISCUSSED WITH NALLELY
--- NOTE | 2018-10-06 15:26 | NUR ---
Assumed care approx. 0700 this AM. Patient was agitated, fussy, and crying this AM stating she wants to go home. Patient
--- NOTE | 2018-10-06 15:41 | NUR ---
Assumed care approx. 0700 this AM. Patient oriented to self and that she is in the hospital. Patient agitated, fussy, and crying much of the morning stating that she "wants to " and "go back home." O2 sat remains 97%-100% on cont. pulse ox while on 30% FiO2. Wound care nurse assessed patient this morning and changed dressings on LUQ abd. wound, left calf, and around peg tube insertion site. (see wound care assessments) Tube feed and water flushes remain on hold, but patient is still getting maintenance fluids. Family called for an update, but was unavailable at the time...Family called back by this RN and left a message to return the call when available to speak about the plan going forward. Not much progress toward plan of care as patient was supposed to be discharged today, but isn't medically stable enough at this time.
[2018-10-06 18:35] VITALS: BP 142/69
[2018-10-06 20:15] VITALS: BP 118/50
[2018-10-07] VITALS (8 sets, daily range): BP systolic 112–190; BP diastolic 54–107
--- NOTE | 2018-10-07 03:23 | NUR ---
No progress towards outcome goals. Peg site continues to ooze yellow foul smelling drainage. Peg to depend drained, clamped for a few minutes after meds. Oxygenation optimal with current vent settings. Patient frustrated, verbalizing this is no way to live and wants to . NPO. Vital signs and rhythm stable. With periods of agitation and crying in frustration. Hydromorphone and Lorazepam offers some relief.
[2018-10-07 06:02] LABS: HEMOGLOBIN 6.5 gm/dL (12.0-15.0)
[2018-10-07 06:10] LABS: HEMATOCRIT 19.9 % (37.0-47.0)
[2018-10-07 06:21] LABS: CALCIUM 8.2 mg/dL (8.5-10.1); CREATININE 0.7 mg/dL (0.6-1.0); POTASSIUM 3.8 mmol/L (3.5-5.1)
--- NOTE | 2018-10-07 06:27 | NUR ---
Critical labs reported to Dr Hay, stated it will be addressed during rounds.
--- NOTE | 2018-10-07 11:14 | NUR ---
When tube feeding able to resume, recommend a change in formula to high protein, elemental. Vital High Protein goal 75ml/hr. Recommend water flush of 125 ml every 6 hr once TF at goal rate.
--- NOTE | 2018-10-07 15:13 | NUR ---
ERON REVIEWED CHART AND SPOKE WITH NURSING AND ATTENDING PHYSICIAN. PT IS NOT MEDICALLY STABLE FOR DISCHARGE BACK TO [facility] TODAY. PT WILL HAVE G-J TUBE PLACED IN IR. ERON FAXED UPDATED CLINICAL INFORMATION TO [facility] FOR REVIEW AND NOTIFIED [facility] LIAISON. PLAN IS FOR PT TO RETURN TO [facility] SNF WHEN MEDICALLY STABLE. ERON IS FOLLOWING TO ASSIST NEEDED WITH DISCHARGE PLANNING.
--- NOTE | 2018-10-07 18:51 | NUR ---
pt is A&O X2 ( person and place), pt is confused at time, pt is contininug IV ABT and iv fluid,pt's anxiety and pain can control with medications, pt is continuing vent A/C mode with Fio2 30%, pt's vs ,o2sat and bs are stable, pt has done G-J tube exchange at 1720pm by IR, pt was tolerative this procedures, pt starts 1st blood transfusion and starts tube feeding 25ml/hr at 1740pm as order,pt is tolerate and pt is relaxing now, RN will report to next shift, keep eye on pt, pt needs 2rd unit blood transfusion, RN has updated pt's information to family.pt has slowly meeting care plan goals.
--- NOTE | 2018-10-07 22:29 | NUR ---
ASSUMED CARE AT 190, ASSESSMENT COMPLETED. PT DROWSY BUT AROUSEABLE, ABLE TO STATE SHE HAD A SURGERY TODAY. CALM AND COOPERATIVE WITH CARES. ASKED FOR PAIN MEDS. GAVE DILAUDID PER TUBE. CHECKED RESIDUAL OF NEW G-J TUBE, IT WAS LESS THAN 5 ML. ABOUT 2144, CAME INTO ROOM TO PREP TUBING FOR NEXT UNIT OF BLOOD, FOUND PT TO HAVE VOMITED LARGE AMOUNT OF DARK GREEN EMESIS ALL OVER HERSELF, THE BED, AND THE FLOOR. AUDIBLY CONGESTED LUNG SOUNDS. SUCTIONED TRACH AND MOUTH. STOPPED TUBE FEEDING. OBTAINED ORDER FOR STAT CXR AND TO HOLD TUBE FEEDING.
[2018-10-08 03:12] VITALS: BP 154/76
[2018-10-08 07:24] VITALS: BP 171/86
[2018-10-08 09:23] LABS: HEMATOCRIT 26.6 % (37.0-47.0); HEMOGLOBIN 8.8 gm/dL (12.0-15.0); MCH 27.8 pg (26.0-34.0); MCV 84.3 fL (80.0-100.0); RBC 3.16 mil/uL (4.20-5.00); RDW 16.9 % (10.5-14.5); WBC 8.7 thou/uL (4.0-11.0)
[2018-10-08 11:20] VITALS: BP 181/106
--- NOTE | 2018-10-08 12:05 | NUR ---
SW reviewed chart and spoke with nursing. Pt had G-J tube placed yesterday. IR to check positioning of tube. Pt is not medically stable for discharge. SW updated [facility] liaison. SW is following to assist as needed with discharge planning.
[2018-10-08 15:26] VITALS: BP 179/92
--- NOTE | 2018-10-08 17:40 | NUR ---
ASSUMED RESPONSIBLITY OF PATIENT AT 0700. PATIENT HAS BEEN OVERALL CALM AND SLEPT MOST OF THE DAY. CURRENTLY PATIENTLY IS NOT TAKING ANY PO MEDS THROUGH THE NEWLY PLACED G-J TUBE, INSTEAD IS TAKING IV MEDS AND TRANSDERMAL PATCH. MONITORED PATIENT G-J TUBE OUTPUT. THERE ARE TWO DIFFERENT SUCTIONS, ONE ON THE G SIDE AND THE OTHER ON THE J SIDE. G OUTPUT WAS 900ML, J OUTPUT WAS 1350ML. PATIENT DID NOT VOMIT TODAY, ALTHOUGH EXPERIENCED SOME GAGGING BEFORE NEEDING ZOFRAN OR REGLAN. PATIENT HAD SPIKES OF HIGHER BLOOD PRESSURE TODAY BEFORE SWITCH TO TRANSDERMAL PATCH. PATIENT HAD KUB TODAY THAT VERIFIED PLACEMENT OF J TUBE CATHETER.
[2018-10-08 19:21] VITALS: BP 156/67
[2018-10-09 03:35] VITALS: BP 147/68
--- NOTE | 2018-10-09 04:09 | NUR ---
PATIENT IS NOT PROGRESSING IN HER CARE PLAN. VITAL SIGNS STABLE WITH NURSE NOT PERCEIVING ANY PAIN OR NAUSEA ON BEHALF OF PATIENT. PATIENT IS ORIENTED TO SELF AND VERY CONFUSED. BREATHING STABLE ON VENTILATOR EVIDENCED BY READINGS FROM CONTINUOUS SATURATION MONITOR AND FREQUENT ASSESSMENTS. BOWEL SOUNDS HYPOACTIVE WITH TUBE FEED BEING HELD PER DOCTOR ORDER. CONTINUE PLAN OF CARE.
[2018-10-09 07:37] VITALS: BP 174/85
--- NOTE | 2018-10-09 10:48 | NUR ---
DP faxed clinical updates to [facility] and notified Gabriella/theresa of incoming updates.
[2018-10-09 11:11] VITALS: BP 152/86
[2018-10-09 15:02] VITALS: BP 185/97
--- NOTE | 2018-10-09 15:44 | NUR ---
ERON reviewed chart and spoke with nursing. Pt to start tube feeding with G J tube today per GI. Pt remains on IV abx. transit planner faxed clinical updates to [facility] for review. Plan is for pt to return to [facility] when medically stable. ERON is following to assist as needed with discharge planning.
--- NOTE | 2018-10-09 19:28 | NUR ---
PATIENT RESTARTED ON TUBE FEEDING THIS SHIFT THROUGH J TUBE. REMAINED ON VENT THIS SHIFT, OFTEN PULLS LINES. ABLE TO REDIRECT. PAIN MANAGED WITH MEDICATION.
[2018-10-09 19:40] VITALS: BP 159/89
[2018-10-10] VITALS (8 sets, daily range): BP systolic 142–210; BP diastolic 79–110
--- NOTE | 2018-10-10 05:10 | NUR ---
PT REMAINS ON THE VENT 30% FIO2 WITH CONTINUOUS PULSE OX. PT WITH TUBE FEEDING AND TOLERATING. PT WITH MAINTENANCE IVFs.
[2018-10-10 09:32] LABS: CALCIUM 8.9 mg/dL (8.5-10.1); CREATININE 0.7 mg/dL (0.6-1.0); POTASSIUM 4.2 mmol/L (3.5-5.1)
--- NOTE | 2018-10-10 09:48 | NUR ---
WOUND CARE FOLLOW UP; LLQ ABD(OLD PEG SITE) CONTINUES TO DRAIN PURULENCE. THE LEFT POSTERIOR CALF HAS SLOUGH PRESENT,POSSIBLE DEEPER STRUCTURES WELL. THE RIGHT HEEL IS AN UNSTAGEABLE PRESSURE WOUND WHICH IS DRY. THE RIGHT MEDIAL ANKLE IS SLOUGHY AND OTHER DEEPER STRUCTURES MAY BE PRESENT WHICH IS DIFFICULT TO ASSESS DUE TO PATIENTS SIZE. RECOMMENDATIONS; DR BARDALES TO SEE RN PRESENT
--- NOTE | 2018-10-10 10:01 | NUR ---
HYDRANT SETTER AND I EXAMINED PT WOUNDS. BILATERAL CALF WOUNDS CONTINUED WITH FOAM DRESSING. RIGHT HEEL PAINTED WITH BETADINE. LLQ WOUND COVERED WITH AQUALCEL AG AND FOAM DRESSING.
--- NOTE | 2018-10-10 10:03 | NUR ---
ORAL CARE PERFORMED, PT ASSESSED, TRACH AND MOUTH SUCTIONED, WOUNDS ADDRESSED. H20 FLUSH AND MEDS GIVEN, PILLOW PLACED UNDER PT BREAST, NEW TELE PATCHES APPLIED. FLUIDS STOPPED PER PHYSICIAN ORDER. PT BED PLACED TO LEFT TURN.
--- NOTE | 2018-10-10 12:42 | NUR ---
PT BLOOD PRESSURE STILL ELEVATED PAGED DR STATON
--- NOTE | 2018-10-10 16:03 | NUR ---
SW reviewed chart and spoke with nursing. Pt is tolerating TF via GJ tube. No weekend discharge planned. Plan is for pt to return to [facility] when medically stable. ERON is following to assist as needed with discharge planning.
--- NOTE | 2018-10-10 16:18 | NUR ---
PT CONSTANTLY PICKING AT TELE WIRES, SPO2 PROBE AND GOWN/SHEETS. PT HOLLERING OUT SAYING SHE DOESN'T WANT TO , YELLING PRAYERS TO GOD.
[2018-10-11 00:10] VITALS: BP 169/81; BP 169/813
[2018-10-11 04:00] VITALS: BP 169/83
--- NOTE | 2018-10-11 05:26 | NUR ---
PT RESTING ON VENT VIA TRACH 30% FIO2. PT TOLERATING TUBE FEEDING. PT BP REMAINS ELEVATED AND MD AWARE.
[2018-10-11 07:16] VITALS: BP 166/78
[2018-10-11 16:05] VITALS: BP 171/96
[2018-10-11 19:26] VITALS: BP 179/65
[2018-10-11 23:47] VITALS: BP 164/82
--- NOTE | 2018-10-12 03:07 | NUR ---
ASSUMED PT CARE AROUND 1900. PT IS ORIENTED TO SELF, OTHERWISE VERY CONFUSED. PT HAS BEEN RESTLESS MOST OF THE NIGHT. PT PULLS AT SHEETS AND LINES SO BILAT WRIST RESTRAINTS LEFT IN PLACE PER DR ORDER. REPOSITIONED TO PREVENT SKIN BREAKDOWN. ORAL CARE PROVIDED. MINIMAL RESIDUALS PER PEG TUBE. PT HAS NOT SLEPT MUCH DURING THE NIGHT. PRN DILAUDED GIVEN FOR C/O BLE PAIN. FALL PRECAUTIONS IN PLACE. NOT PROGRESSING WELL TOWARD POC GOALS. STAFF HAS ATTEMPTED TO GIVE PT MORE ATTENTION BY STAYING IN ROOM, HOLDING HER HAND, ETC TO HELP HER RELAX. PT FALLS ASLEEP FOR SHORT PERIODS OF TIME BUT AWAKENS RESTLESS AGAIN.
[2018-10-12 03:56] VITALS: BP 174/82
[2018-10-12 07:38] VITALS: BP 181/83
[2018-10-12 11:39] VITALS: BP 179/70
[2018-10-12 16:10] VITALS: BP 180/81
--- NOTE | 2018-10-12 17:37 | NUR ---
ASSUMED CARE OF PATIENT AT 0700. PATIENT WAS AGITATED TODAY BEFORE FAMILY VISITED HER. PATIENT WOULD VERBALIZE THE ALPHABET AND COUNT TOWARDS 100 RANDOMLY IN HER ROOM BY HERSELF OUT LOUD. PATIENT CONTINUED TO RECIEVE ATIVAN TODAY FOR HER AGITATION ALTHOUGH IT SEEMED INEFFECTIVE AT TIMES. PREVIOUS NURSE STATED PATIENT DID NOT SLEEP WELL LAST NIGHT, SO INCREASED AGITATION MAY BE DUE TO LACK OF REST. PATIENT DID NOT HAVE ANY FLUIDS FROM HER SECTION TO HER G-TUBE.
[2018-10-12 19:40] VITALS: BP 172/80
[2018-10-12 23:59] VITALS: BP 169/78
--- NOTE | 2018-10-13 03:20 | NUR ---
ASSUMED PT CARE AROUND 1900. PT SLEPT MOST OF THE NIGHT. WHEN AWAKE, SHE IS VERY RESTLESS AND MAKES CONFUSED, ANXIOUS STATEMENTS. C/O BLE PAIN. PAIN MEDICATION GIVEN. PARTIAL BED BATH GIVEN. GREEN DRAINAGE LEAKING FROM JG TUBE. DRESSING CHANGED NEEDED. MINIMAL RESIDUAL FROM JG TUBE. O2 SATS STABLE ON VENT SETTINGS. ORAL CARE PROVIDED. FALL PRECAUTIONS IN PLACE. NOT PROGRESSING WELL TOWARD POC GOALS. WILL CONTINUE TO MONITOR FURTHER.
[2018-10-13 05:00] VITALS: BP 181/79
[2018-10-13 08:16] VITALS: BP 161/78
[2018-10-13 11:19] VITALS: BP 165/73
--- NOTE | 2018-10-13 11:59 | NUR ---
WOUND CARE FOLLOW UP; THE LEFT CALF WOUND HAS MORE SHOUGH IN THE WOUND BED TODAY. THE RIGHT HEEL IS STABLE WITH NO CHANGES SINCE SATURDAY. THE LLQ ABCESSED WOUND CONTINUES TO DRAIN PURULENT DRAINAGE AND THE PERIWOUND IS WARM TO TOUCH. THIS WAS REPORTED TO DR ISSA ON SATURDAY. RECOMMENDATION; CONTINUE THE SAME FOR NOW. DISCUSSED WITH NALLELY
--- NOTE | 2018-10-13 13:16 | NUR ---
SW reviewed chart. office workforce planner faxed clinical updates to [facility] for review. Pt will return to [facility] when medically stable. Pt is in restraints. SW is following to assist as needed with discharge planning.
[2018-10-13 16:21] VITALS: BP 148/73
[2018-10-13 18:17] LABS: URINE BILIRUBIN NEGATIVE (Negative); URINE BLOOD NEGATIVE (Negative); URINE CLARITY CLEAR; URINE COLOR YELLOW; URINE GLUCOSE-RANDOM* NEGATIVE (Negative); URINE KETONES TRACE (Negative); URINE LEUKOCYTES-REFLEX 1+ (Negative); URINE NITRITE-REFLEX NEGATIVE (Negative); URINE PROTEIN (DIPSTICK) 1+ (Negative); URINE SPECIFIC GRAVITY 1.015 (1.005-1.035); URINE UROBILINOGEN 0.2 E.U./dl (0.2-1.0)
[2018-10-13 18:32] LABS: SQUAMOUS None Seen /LPF (0-3)
[2018-10-13 18:33] LABS: BACTERIA-REFLEX None Seen /HPF (None Seen); CASTS None Seen /LPF (None Seen); CRYSTALS None Seen /LPF (None Seen); URINE RBC 0-2 Rare /HPF (0-2); URINE WBC-REFLEX >25 Many /HPF (0-5); YEAST-REFLEX Present (None Seen)
--- NOTE | 2018-10-13 19:55 | NUR ---
Assumed care approx. 0700 this AM. Restraints removed from patient at 1700 as patient hasn't tried to pull at medical equipment and seems to be much less agitated with the scheduled IV ativan pushes. Patient O2 sats adequate on ventilator. Nutritional status maintained with tube feed at goal rate, beneprotein, and H20 water flushes. Increased skin problems prevented as much as possible with Q2H turns and a bed bath after gastric contents and purulent drainage from wounds soaked the patient. Daily dressing changes completed by hand candle dipper. Gastric tube to LIWS and tube feed infusing to J-tube. Fall precautions in place. Slow progression toward goals.
[2018-10-13 20:20] VITALS: BP 148/81
[2018-10-14 05:29] LABS: ABSOLUTE NEUTROPHILS 8.1 thou/uL (1.4-8.2); BASOPHILS 0.3 % (0.0-2.0); EOSINOPHILS 1.5 % (0.0-3.0); HEMATOCRIT 25.1 % (37.0-47.0); HEMOGLOBIN 8.2 gm/dL (12.0-15.0); LYMPHOCYTES 15.5 % (24.0-44.0); MCH 27.7 pg (26.0-34.0); MCHC 32.6 g/dL (28.0-37.0); MCV 85.1 fL (80.0-100.0); MONOCYTES 10.9 % (1.0-8.0); PLATELET COUNT 323 thou/uL (150-400); POLYS 71.8 % (36.0-66.0); RBC 2.94 mil/uL (4.20-5.00); RDW 17.1 % (10.5-14.5); WBC 11.2 thou/uL (4.0-11.0)
[2018-10-14 05:38] LABS: ALBUMIN 1.2 g/dL (3.4-5.0); CALCIUM 8.5 mg/dL (8.5-10.1); CREATININE 0.7 mg/dL (0.6-1.0); POTASSIUM 3.4 mmol/L (3.5-5.1); TOTAL BILIRUBIN 0.1 mg/dL (<0.1-1.0); TOTAL PROTEIN 6.1 g/dL (6.4-8.2)
--- NOTE | 2018-10-14 06:24 | NUR ---
ASSUMED CARE AT 1900, ASSESSMENT COMPLETED Q4H PER PROTOCOL. PT REPORTED PAIN IN LEFT KNEE WITH REPOSITIONING AND GENERAL/CHRONIC PAIN IN BACK AND ABD; GIVEN IV PAIN MEDS TWICE OVERNIGHT. DENIED NAUSEA. DIMINISHED, COARSE LUNG SOUNDS; PT KEPT CLEARING HER THROAT AND COUGHING FREQ OVERNIGHT; SUCTIONED BOTH MOUTH AND TRACH MULTIPLE TIMES. TUBE FEEDING INFUSING AT 75 ML/HR VIA J-TUBE SITE, Q4 HR 150 ML WATER FLUSHES, SCANT RESIDUAL. G-TUBE SITE INITIALLY HAD HIGH OUTPUT TO LIS; GREEN LIQUID WITH DARK GREEN SEDIMENT, 625 ML OUT BEFORE 2300. PT BECAME GRADUALLY MORE RESTLESS, AND THERE WAS NO CHANGE IN AMOUNT OF OUTPUT TO SUCTION. SWITCHED WHICH WALL SUCTION G-TUBE AND CANNISTER, AND AFTER ABOUT 3.5 HOURS THERE WAS ONLY 100 ML OUT. G-TUBE SITE WAS DIFFICULT TO FLUSH AND WOULD NOT DRAW BACK WITH SYRINGE. ABOUT 0400, CHANGED TO A DEPENDENT DRAIN BAG AND MANIPULATED THE TUBING, FLUSHED ANOTHER 100 ML INTO G-TUBE AND RECONNECTED TO DEPEND DRAIN BAG; AFTER ONE HOUR THERE WAS ABOUT 225 ML OUT OF LIGHT GREEN WITH THICK, DARK GREEN SEDIMENT THAT KEPT BLOCKING THE TUBE, ALSO NOTED A FEW SMALL BLOOD CLOTS COME THROUGH G-TUBE SITE. CHANGED DRESSING ON LEFT ABD IT HAD BECOME SOILED WITH YELLOW PURULENT DRAINAGE. PT HAD ONE SMALL BM OVERNIGHT; IT WAS A RED-ORANGE JELLY CONSISTENCY. NO OTHER CONCERNS, WILL CONTINUE TO MONITOR.
[2018-10-14 07:44] VITALS: BP 164/75
[2018-10-14 08:45] VITALS: BP 164/75
--- NOTE | 2018-10-14 10:01 | NUR ---
DISCHARGE PLANNING. PATIENT TO DISCHARGE TO [facility] ONCE MEDICALLY READY. UPDATED CLINICAL INFORMATION TO [facility] INTAKE LIAISON, VERIFIED RECEIVED. FOLLOWING TO ASSIST WITH DISCHARGE.
[2018-10-14] MEDS ORDERED: SEROQUEL 25 MG25 M1 PER TUBE (10:06)
[2018-10-14] MEDS ORDERED: CATAPRES-TTS 20.2 MG TRANSDERM (10:06)
[2018-10-14] MEDS ORDERED: CARVEDILOL25 MG PO (10:06)
[2018-10-14] MEDS ORDERED: METOCLOPRAM5 MG/1 ML IV PUSH (10:06)
[2018-10-14] MEDS ORDERED: MERREM1 GM IVPB (10:06)
--- NOTE | 2018-10-14 13:29 | NUR ---
DISCHARGE NOTE: ERON reviewed chart and spoke with nursing and attending physician. Pt is medically stable for discharge to [facility] today. SW notified [facility] liaison, who confirms they are able to accept pt to the LTAC today. enterprise resource planner faxed discharge orders/summary and arranged ambulance transportation for 1430 per [facility]'s request. Chart copy requested. Nursing to call report. ERON spoke with pt's dtr, Erika, via phone to provide update and notify of pt's discharge to the LTAC. Erika is aware and in agreement with discharge plan. ERON updated [facility] liaison of transportation time. No additional SW needs identified at this time, but is available to assist should needs arise.
--- NOTE | 2018-10-14 14:58 | NUR ---
PATIENT WILL BE DISCHARGED TO [facility] AT THIS TIME. DRAINAGE TO PEG SITE HAS SIGNIGICANTLY DECLINE TODAY. PLACED ON DEPENDENT DRAINAGE FOR TRANSPORT.
== END 2018-10-14 15:00 | DRG 207 ==
LOC: ER 08:29 → EROBS 09:51 → 3W 09:51
PROVIDERS: Emergency Medicine; Internal Medicine; Internal Medicine Gastroenterology; Internal Medicine Geriatric Medicine; Specialist; ADMIT Internal Medicine
DX: J96.20 Acute and chronic respiratory failure, unspecified whether with hypoxia or hypercapnia (principal); E43 Unspecified severe protein-calorie malnutrition; K94.23 Gastrostomy malfunction; L02.211 Cutaneous abscess of abdominal wall; Z99.11 Dependence on respirator [ventilator] status; Z68.45 Body mass index [BMI] 70 or greater, adult; E66.2 Morbid (severe) obesity with alveolar hypoventilation; G93.40 Encephalopathy, unspecified; E11.22 Type 2 diabetes mellitus with diabetic chronic kidney disease; D63.8 Anemia in other chronic diseases classified elsewhere; I12.9 Hypertensive chronic kidney disease with stage 1 through stage 4 chronic kidney disease, or unspecified chronic kidney disease; K44.9 Diaphragmatic hernia without obstruction or gangrene; B96.4 Proteus (mirabilis) (morganii) as the cause of diseases classified elsewhere; Z16.12 Extended spectrum beta lactamase (ESBL) resistance; E11.43 Type 2 diabetes mellitus with diabetic autonomic (poly)neuropathy; K31.84 Gastroparesis; D63.1 Anemia in chronic kidney disease; N18.9 Chronic kidney disease, unspecified; Z93.0 Tracheostomy status; Z79.4 Long term (current) use of insulin; Z79.899 Other long term (current) drug therapy
CPT/HCPCS: 10879

== ENCOUNTER 2018-11-10 16:27 | Inpatient (IN) | payer OTHER ==
[~2018-11-10] VITALS: Ht 160 cm; Wt 175.5 kg
--- NOTE | ~2018-11-10 | EMS ---
[address] [address] EMS Patient Care Report Name: HEIDY BOYD Room #: 436-P ADM IN M.R.#: [id number] Admission: 11/11/18 ������������������ Attend Phys: Justin Murphy MD Discharge: ������������������ Date of : 57 Report #: [id number] THIS REPORT FOR: //name// Report Transmitted: 11/11/2018 10:18 EMS Care Summary [facility] Incident [id number] @ 11/11/2018 05:59 Incident Location [address] [address] Patient HEIDY BOYD Female, 63 Years 1955 Patient Address [address] [address] Patient History Other, Patient Allergies No known allergies, Patient Medications Lorazepam, Hydromorphone, Metoprolol, Levemir, Prednisone, Famotidine, Aspirin, Chief Complaint Pre-Scheduled Surgery at [facility] Disposition Transported No Lights/[place] Dispatch Reason Sick Person Transported To [facility] Narrative AOS to find pt laying supine on her bed at [facility]. Per staff pt has an appointment at [facility] for a surgery this AM at 0830. Pt has no complaints at this time [address] [address] EMS Patient Care Report Name: HEIDY BOYD Room #: 436-P [facility] IN [place]#: [id number] Admission: 11/11/18 ������������������ Attend Phys: Justin Murphy MD Discharge: ������������������ Date of : 57 Report #: [id number] and is resting comfortably. pt is on a vent. pt moved to bariatric cot via hover brayden/mat. pt transported with BVM assistance and two PM in the back with pt. pt moved to ED bed at [facility] via [employer] brayden/mat. Pt care and report to ED RN. Initial Vitals @06:59P: 100,R: 29,BP: 158/99,Pain: 6/10,GCS: 15,EtCO2: 69,Revised Trauma: 12, @06:49P: 108,R: 27,BP: 161/97,Pain: 6/10,GCS: 15,EtCO2: 71,SpO2: 100,Revised Trauma: 12, @06:24P: 129,R: 18,BP: 160/90,Pain: 6/10,GCS: 15,EtCO2: 61,SpO2: 40,Revised Trauma: 12, Assessments @06:18MENTAL:No Abnormalities,SKIN:No Abnormalities,HEENT:Neck/Airway: Other,Head/Face: No Abnormalities,Eyes: No Abnormalities,LUNG SOUNDS:General: No Abnormalities,Left Upper: No Abnormalities,Right Upper: No Abnormalities,Left Lower: No Abnormalities,Right Lower: No Abnormalities,ABDOMEN:General: No Abnormalities,Left Upper: No Abnormalities,Right Upper: No Abnormalities,Left Lower: No Abnormalities,Right Lower: No Abnormalities,PELVIS//GI:Tenderness,EXTREMITIES:Left Leg: Abnormal Sensation,Left Leg: Weakness,Right Leg: Abnormal Sensation,Right Leg: Weakness,Left Arm: No Abnormalities,Right Arm: No Abnormalities,PULSE:NEURO:No Abnormalities, Impression Abdominal Pain Timeline 05:53,Call Received 05:53,Psap Call 05:59,Dispatched 06:01,En Route 06:13,On Scene 06:15,At Patient 06:24,BP: 160/90 M,PULSE: 129,RR: 18 R,SPO2: 40 Ox,ETCO2: 61 ,BG: ,PAIN: 6,GCS: 15, 06:49,BP: 161/97 M,PULSE: 108,RR: 27 R,SPO2: 100 Ox,ETCO2: 71 ,BG: ,PAIN: 6,GCS: 15, 06:51,Depart Scene 06:59,BP: 158/99 M,PULSE: 100,RR: 29 R,SPO2: Ox,ETCO2: 69 ,BG: ,PAIN: 6,GCS: 15, 07:00,At Destination 07:40,Call Closed Disclaimer [address] [address] EMS Patient Care Report Name: HEIDY BOYD Room #: 436-P [facility] IN M.R.#: [id number] Admission: 11/11/18 ������������������ Attend Phys: Justin Murphy MD Discharge: ������������������ Date of : 57 Report #: [id number] v1.1 Copyright 2019 [employer] This EMS Care Summary contains data elements from the applicable legal record (which may be displayed differently). It is designed to provide pertinent information for the following purposes: continuity of care, clinical quality, and state data reporting. The complete legal record is available to ED staff and administrators of the receiving hospital in [facility]'s Patient Tracker. All data is provided "as is."
--- NOTE | ~2018-11-10 | D ---
[facility] [place] [address] DISCHARGE SUMMARY Name: HEIDY BOYD Room #: 352-P [facility] IN .R.#: [id number] Admission: 11/11/18 ������������������ Attend Phys: Justin Murphy MD Discharge: 11/17/18 ������������������ Date of : 57 Report #: [id number] THIS REPORT FOR: //name// CC: Jose Murphy DATE OF SERVICE: 11/17/2018 FINAL DIAGNOSES: 1. Chronic respiratory failure. 2. Ventilator dependence. 3. Tracheostomy dependence. 4. Malfunctioning PEG tube. 5. Fistula of the left abdominal wall. 6. Anemia of chronic disease. 7. Morbid obesity with a BMI over 50. 8. Severe protein-calorie malnutrition. HOSPITAL COURSE: The patient was admitted for consideration of wound or fistula in the left abdominal wall. After consultation studies and discussions, it was felt that this likely represented a fistula, although because of her body habitus full Radiology studies could not be performed to definitively diagnose this most namely as a CT abdomen. After discussing with her family and Dr. Baltazar, an ultrasound was obtained. There was no obvious pocket of abscess or fluid collection within the abdominal wall for surgical debridement. The decision again was made no surgical intervention. This is the third time she has been assessed for surgery and declined. Otherwise, she is chronically ventilated, which was unchanged. She was supported in her usual fashion with tube feeding through the J-tube and medications. The family had many discussions with myself, case management and the consultants. Ultimately, her daughter and sister discussed with the patient and they were all requested DNR status. They also requested we try to arrange for her to go home with hospice care. DISPOSITION: She is being transferred to home in [place] with her family in [facility], no medications at this point, [facility] will assume care. ��������������������������������������������� ���������������������������������������� By: ��������������������������������������������� [id number] Justin Murphy MD /nt
[~2018-11-10 16:27] MED LIST: AMPICILLIN-SULB3 GM IV; ASPIR 8181 MG PER TUBE; ATIVAN0.5 MG PER TUBE; CARVEDILOL25 MG PO; CATAPRES-TTS 20.2 MG TRANSDERM; DILAUDID 2 MG TA2 MG; DILAUDID 2 MG TA2 MG PO; DIPHEDRYL12.5 MG/2 PER TUBE; ENOXAPARIN40 MG/0.1 SUBQ; GLUCAGEN1 M2 INJECTION; GLUCOSE BITS1 GM PO; GLUTOSE GEL 1515 G1 PO; IPRATROPIU0.2 MG/1 M INH; LEVEMIR SUBQ; LOPRESSOR100 M1 PER TUBE; MAPAP500 MG/15 PER TUBE; MERREM1 GM IVPB; METOCLOPRAM5 MG/1 ML IV PUSH; PEPCID20 MG PER TUBE; PREDNISONE 5 MG5 M1 PER TUBE; REGLAN 10 MG TA10 MG PO; SEROQUEL 25 MG25 M1 PER TUBE; TOPROL XL25 MG PER TUBE; VALPROIC A250 MG/51 PER TUBE; VANCO 1 GR1 GM/250 M IVPB; [UNRECOGNIZED DRUG - OTHER] IV
[2018-11-11 07:50] VITALS: BP 89/52
--- NOTE | 2018-11-11 08:10 | NUR ---
PT ORIENTED TO ROOM AND UNIT. SPECIALTY BED LOW AND LOCKED, SIDE RAILS UPX 3, CALL LIGHT IN REACH. PT HAS RIGHT IJ TL AND TRACH WHICH IS CONNECTED TO MECHANICAL VENTILATION. GRANDA AND GTUBE IN PLACE. PAGED DR. PAZ THAT PT HAS ARRIVED TO [facility]. WILL CONTINUE TO ASSESS.
[2018-11-11 08:52] LABS: BE(vivo) 21.7 mmol/L (-2 to +3); HCO3 46.5 mmol/L (22.0-26.0); PCO2 53.6 mmHg (35.0-45.0); pH 7.556 (7.360-7.450); sO2 90.8 % (92.0-98.0)
[2018-11-11 08:58] LABS: PO2 53.4 mmHg (80.0-100.0)
--- NOTE | 2018-11-11 10:22 | NUR ---
IV TEAM AVE OK TO USE RIGHT SUBCLAVIAN CENTRAL LINE.
--- NOTE | 2018-11-11 10:47 | NUR ---
WOUND CONSULT; THIS IS A KNOW PATIENT TO ME. TODAY HER OLD PEG TUBE SITE IS WORSE, IT NOW HAS TRACKED AND CREATED TWO WOUNDS. PURULENT DRAINAGE DRAINING FOR 5 MINUTES. BILATERAL CALF AREAS AND LEFT BUTTOCKS ABRASIONS/FRICTION INJURY. RECOMMENDATION; -PACKING STRIPS INTO BOTH LUQ WOUNDS, COVER WITH ABD -BILATERAL CALF WOUND, NO INFECTION. 3-ZGUARD TO LEFT BUTTOCKS. DISCUSSED WITH NALLELY
[2018-11-11 11:12] LABS: HEMATOCRIT 25.1 % (37.0-47.0); HEMOGLOBIN 8.1 gm/dL (12.0-15.0); MCH 27.4 pg (26.0-34.0); MCHC 32.2 g/dL (28.0-37.0); MCV 85.1 fL (80.0-100.0); RBC 2.95 mil/uL (4.20-5.00); RDW 17.8 % (10.5-14.5); WBC 11.1 thou/uL (4.0-11.0)
[2018-11-11 11:36] LABS: ALBUMIN 1.2 g/dL (3.4-5.0); BUN 68 mg/dL (7-18); CALCIUM 8.6 mg/dL (8.5-10.1); CHLORIDE 99 mmol/L (98-107); CREATININE 1.2 mg/dL (0.6-1.0); GLUCOSE 116 mg/dL (74-106); SGOT 16 U/L (15-37); SGPT 5 U/L (30-65); SODIUM 147 mmol/L (136-145); TOTAL BILIRUBIN 0.2 mg/dL (<0.1-1.0); TOTAL PROTEIN 6.4 g/dL (6.4-8.2)
[2018-11-11 11:39] VITALS: BP 101/61
[2018-11-11 11:39] LABS: CO2 > 45 mmol/L (21-32); POTASSIUM 2.8 mmol/L (3.5-5.1)
--- NOTE | 2018-11-11 11:59 | NUR ---
FAMILY OF PATIENT WAS EDUCATED REGARDING ISOLATION PRECAUTIONS AT 1130. FAMILY IS REFUSING TO WEAR PERSONAL PROTECTIVE EQUIPMENT.
[2018-11-11 12:28] LABS: BE(vivo) 22.5 mmol/L (-2 to +3); HCO3 46.1 mmol/L (22.0-26.0); PCO2 46.5 mmHg (35.0-45.0); PO2 68.8 mmHg (80.0-100.0); pH 7.614 (7.360-7.450)
--- NOTE | 2018-11-11 14:48 | NUR ---
Nutrition: When appropriate, REC enteral feeds of Vital HP to run at 45 mL/hr with 100 ML H20 flush q 4 hrs.
--- NOTE | 2018-11-11 14:52 | NUR ---
FAMILY EXPRESSED WISH TO HAVE A PALLIATIVE CARE CONSULT AND NO MORE INTERVENTION. CONTACT DR. PAZ AND INSTRUCTED TO HAVE CM TALK TO FAMILY ABOOUT PALLIATIVE CARE.
[2018-11-11 15:42] VITALS: BP 134/71
--- NOTE | 2018-11-11 16:41 | NUR ---
INITIAL ASSESSMENT: Received consult. ERON reviewed chart and spoke with nursing. Pt was admitted from [facility] for surgical evaluation for abdominal abscess. Pt has feeding tube in place and has trach in place and is on the ventilator.General surgery and ID consulted. Nursing notified ERON that pt's family have decided to not pursue any further surgical interventions. Pt's family interested in palliative care/hospice services. ERON met with pt, dtr, sister and family at bedside. Introduced role of SW. Pt's family state that physicians have said that pt will not be weaned off the vent and that her condition may not improve. Pt's family tearful and stating that they want pt to be comfortable. SW discussed code status with pt's family. Pt's family state that pt had mentioned that she wants to be a DNR. SW explained that if pt goes into cardiac of pulmonary arrest, resuscitation efforts will not be initiated. Pt's family all in agreement and verbalized understanding. SW discussed possibility of pt returning to [facility] with palliative care services. Pt is from [place] and all family lives in [place]. Pt's family asked about having pt go to [place] for home hospice services. SW explained barrier to pt being on the ventilator and having hospice providing the necessary equipment. Unsure how long pt would survive being off the ventilator. Pt's family very tearful stating they want pt to be with family and at home. ERON updated attending physician, who will discuss with pt's family: code status and discharge disposition. ERON updated [facility] liaison. ERON is following to assist as needed with discharge planning.
--- NOTE | 2018-11-11 17:00 | NUR ---
DR PAZ TO CLARIFY WITH FAMILY IN THE AM CODE STATUS AND PLAN FOR CARE. U/S CONTACTED [facility]SA[facility] BROWNING AND INFORMED THAT ABD U/S WILL BE COMPLETED IN THE AM.
--- NOTE | 2018-11-11 17:07 | NUR ---
ASSUMED CARE OF PATIENT AROUND 0730 WHEN PATIENT WAS ADMITTED FROM [facility]. PATIENT WOUNDS WERE ASSESSED BY WOUND CARE NURSE AND MYSELF. PATIENT HAD SIGNIFICANT DRAINING FROM WOUND ON LEFT ABDOMEN. PATIENT HAD BLOOD DRAWN FROM PICC FOR LABS AND RECIEVED POTASSIUM AND ANTIBIOTICS.
--- NOTE | 2018-11-11 18:24 | NUR ---
TALKED TO SISTER AND FAMILY WISHES FULL CODE UNTIL TALKS TO DR. PAZ TOMORROW NO CODE ORDER HAS BEEN ENTERED.
[2018-11-11 18:34] LABS: HCO3 48.4 mmol/L (22.0-26.0); PCO2 52.3 mmHg (35.0-45.0); PO2 80.3 mmHg (80.0-100.0); pH 7.584 (7.360-7.450)
[2018-11-12 00:13] VITALS: BP 120/46
[2018-11-12 03:32] VITALS: BP 118/60
[2018-11-12 06:11] LABS: BUN 70 mg/dL (7-18); CALCIUM 8.3 mg/dL (8.5-10.1); CHLORIDE 99 mmol/L (98-107); CREATININE 1.2 mg/dL (0.6-1.0); GLUCOSE 84 mg/dL (74-106); POTASSIUM 3.4 mmol/L (3.5-5.1); SODIUM 145 mmol/L (136-145)
[2018-11-12 06:20] LABS: CO2 > 45 mmol/L (21-32)
--- NOTE | 2018-11-12 07:37 | H ---
[facility] [place] [address] HISTORY AND PHYSICAL Name: HEIDY BOYD Room #: 436-P ADM IN M.R.#: [id number] Admission: 11/11/18 ������������������ Attend Phys: Justin Murphy MD Discharge: ������������������ Date of : 57 Report #: [id number] THIS REPORT FOR: //name// CC: Jose Murphy DATE OF SERVICE: 11/11/2018 CHIEF COMPLAINT: Draining left abdominal wound. HISTORY OF PRESENT ILLNESS: The patient is a 63-year-old female who was readmitted electively from [facility] for evaluation of a persistent draining open wound in the left abdominal wall. Her history began several months ago when [facility] requiring ventilator and tracheostomy tube placement. Ultimately, she required a PEG tube and then transferred to [facility] for attempts at ventilator weaning. This was over the summer. Upon her admission initially to [facility], there were concerns over the location of the PEG tube. Ultimately, this was reconfirmed by a Gastrografin study and no visible leakage was seen; however, she continued to have either purulent drainage or tube feeding draining from the stoma. There was an indurated area at the left abdominal wall as well. She was hospitalized briefly at [facility]. Again, confirmation of the tube placement within the stomach was obtained. Surgical opinion recommended conservative treatment. I believe there was a soft tissue ultrasound of the abdominal wall which did not show an abscess. She was transferred back to [facility] and she has been off and on antibiotics. She continued to have drainage and was readmitted here about a month ago with the same problem. At that time, ID, GI and Surgery all were involved and reviewed the situation, again placement of the tube was confirmed with Gastrografin. Ultimately, Interventional Radiology changed the tube to a dual port with a J-tube for feeding and a G-tube for bedside drainage. There was concern of her ability to tolerate gastric feedings due to gastroparesis and high residuals. She had episodes of vomiting of the tube feeding and there continued to be purulent or tube feed type drainage from the PEG stoma. She is transferred back to the LTAC and has been receiving IV antibiotics with J-tube feeding. Again, the G-tube port is to bedside drainage. She has been receiving IV Reglan. However, she continues to have drainage from around the stoma. There are now 3 open areas on the lateral abdominal wall that are draining a purulent type material as well. A recent culture of this area has grown Proteus. She is admitted for definitive surgical intervention. PAST MEDICAL HISTORY: As documented above. Chronic hypoxic respiratory failure due to morbid obesity and likely obstructive sleep apnea and obesity hypoventilation syndrome. She reports a history of hypertension. PAST SURGICAL HISTORY: Other than the trach and PEG is unknown. [facility] [address] [place] [address] HISTORY AND PHYSICAL Name: HEIDY BOYD Room #: 436-P [facility] IN M.R.#: [id number] Admission: 11/11/18 ������������������ Attend Phys: Justin Murphy MD Discharge: ������������������ Date of : 57 Report #: [id number] FAMILY HISTORY: Unknown. SOCIAL HISTORY: Unknown. ALLERGIES: None. MEDICATIONS: Ativan, Pepcid, Dilaudid, Atrovent, meropenem, Reglan, prednisone, Seroquel. REVIEW OF SYSTEMS: She is unable to give review. OBJECTIVE: VITAL SIGNS: Temperature at 36.7, pulse 93, respirations 18, blood pressure 101/61, O2 sat 96% on the ventilator. GENERAL: She is awake. Nursing staff is working with her. HEAD AND NECK: Unremarkable. Trach in place. LUNGS: Clear. HEART: Regular. ABDOMEN: Obese, protuberant. There is a PEG tube in the mid upper abdomen. On the left abdominal wall, there is significant induration and expressible yellowish fluid or pus from several openings. EXTREMITIES: 1+ edema. She moves all extremities. NEUROLOGIC: She is alert, trying to communicate over the ventilator. LABORATORY REVIEW: Her white count is 11, hemoglobin 8, potassium 2.8. Venous carbon dioxide was greater than 45. Her ABG revealed a pH of 7.55, pCO2 of 53, pO2 of 53. Chest x-ray was fairly unremarkable. ASSESSMENT: 1. Abdominal wall abscess. 2. Chronic hypoxic hypercapnic respiratory failure. 3. Obesity hypoventilation syndrome. 4. Obstructive sleep apnea. 5. Morbid obesity. 6. Anemia of chronic disease. 7. Hypokalemia. 8. Acute kidney injury. 9. Severe protein-calorie malnutrition, albumin 1.2. 10. Critical illness myopathy. 11. Metabolic encephalopathy due to the above. PLAN: IV meropenem, we will continue. I will ask Infectious Disease and General Surgery to assess her for consideration of a surgical intervention to address these draining open areas for concern of abscess. We will attempt abdominal wall soft tissue ultrasound. It has been well documented previously [facility] [address] [place] [address] HISTORY AND PHYSICAL Name: HEIDY BOYD Room #: 436-P ADM IN .R.#: [id number] Admission: 11/11/18 ������������������ Attend Phys: Justin Murphy MD Discharge: ������������������ Date of : 57 Report #: [id number] that her body habitus prevents CAT scan study. Overall poor prognosis given her comorbidities. Her daughter is at the bedside and wishes to proceed with invasive workup and treatment as indicated. ��������������������������������������������� <ELECTRONICALLY SIGNED> ���������������������������������������� By: Justin Murphy MD ��������������������������������������������� 11/12/18 0737 [id number] Justin Murphy MD /nt
[2018-11-12 08:04] VITALS: BP 132/62
[2018-11-12 12:06] LABS: BE(vivo) 23.9 mmol/L (-2 to +3); HCO3 49.1 mmol/L (22.0-26.0); PCO2 58.5 mmHg (35.0-45.0); pH 7.542 (7.360-7.450); sO2 92.2 % (92.0-98.0)
[2018-11-12 12:08] VITALS: BP 114/62
--- NOTE | 2018-11-12 14:54 | NUR ---
ERON reviewed chart and spoke with nursing and attending physician. PHysician spoke with pt's family earlier today. Pt is a DNR. Pt may need exploration of abdominal wall abscess. No plans for aggressive surgical intervention at this time. Pt's family want pt to get back home to [place]. ERON spoke with [place] at [facility]iative [facility] program. They are not able to accept a pt as a direct admission or transfer. However, they do contact with several hospice companies. Should pt be in the home setting and need in hospice services, they might be able to admit pt from home. ERON spoke with pt's dtr, Erika, via phone to provide update and further discuss discharge plan. SW provided update regarding services at [facility] and in the home setting. SW provided options for hospice agencies. No preference voiced. ERON sent referral to [facility], as they have a contract with [facility] if needed. ERON discussed case with [facility] liaison, who will contact pt's dtr to arrange a family meeting tomorrow. Pt's family will be at [facility] tomorrow. ERON updated attending physician and pt's nurse. ERON is following to assist as needed with discharge planning.
[2018-11-12 15:51] VITALS: BP 122/65
[2018-11-12 19:58] VITALS: BP 107/60
--- NOTE | 2018-11-12 20:46 | HC ---
[facility] [place] [address] CONSULTATION Name: HEIDY BOYD Room #: 436-P [facility] IN ..#: [id number] Admission: 11/11/18 ������������������ Attend Phys: Justin Murphy MD Discharge: ������������������ Date of : 57 Report #: [id number] THIS REPORT FOR: //name// CC: Jose Murphy DATE OF SERVICE: 11/11/2018 INFECTIOUS DISEASE CONSULTATION REASON FOR CONSULTATION: I was asked to evaluate concerning abdominal wall abscess. HISTORY OF PRESENT ILLNESS: The patient is a 63-year-old morbidly obese woman over 500 pounds, who has respiratory failure. Initially evaluated in August when she presented to [facility] with respiratory failure from outside hospital. At that time, there was concern about her PEG tube placement. It was suspected to have dislodged during transit from [facility]. Her PEG tube was revised at [facility]. Subsequent to this, she has had abdominal wall induration on the left side with sinus tracts. This had been evaluated twice with ultrasound and she has undergone local surgical debridement at the bedside. She is too big to be evaluated in the CT scanner. She has been given contrast studies and ultrasounds try to define this process. Ultimately, she has had a second PEG tube placed, that was a J PEG in order to suction the gastric secretions. Despite this, she still is not doing well and returns now for further evaluation of the abdominal wall. It has been indurated, swollen and several sinus tracts with purulent material draining out. Last culture obtained was in September, which showed Proteus. She has been on and off antibiotics. Now is on meropenem. There has been no fever or chills. She has significant amount of abdominal discomfort. She has been unable to wean from the ventilator. REVIEW OF SYSTEMS: She did have a right upper extremity PICC and previously had a coag negative Staph bacteremia associated with it. Now has IV access. She has an indwelling Montalvo catheter. She remains on the ventilator. She was alert, able to speak over the ventilator. There has been confusion. She has had soft to loose stool. Reasonable urine output. A 10-point review of systems was negative, other than what is described above. PAST MEDICAL HISTORY: Respiratory failure, morbid obesity, previous acute renal failure, diabetes, malnutrition, anemia of chronic disease, chronic lymphedema. ALLERGIES: None known. MEDICATIONS: As noted on her APR, now on meropenem. She does remain on prednisone 5 mg a day. [address] [address] CONSULTATION Name: HEIDY BOYD Room #: 436-P [facility] IN [facility]#: [id number] Admission: 11/11/18 ������������������ Attend Phys: Justin Murphy MD Discharge: ������������������ Date of : 57 Report #: [id number] FAMILY HISTORY: Noncontributory. SOCIAL HISTORY: Nonsmoker, no significant alcohol intake. PHYSICAL EXAMINATION: VITAL SIGNS: Afebrile and hemodynamically stable. GENERAL: She was alert and cooperative. Morbidly obese. Predominant left-sided body edema. Very large pendulous breasts with pitting edema on the left. EYES: Without scleral icterus. MOUTH: Without mucositis. NECK: Supple. Trach site was unremarkable with no drainage. LUNGS: Clear anteriorly. HEART: Regular, without murmur. ABDOMEN: Protuberant. There is induration along the left side of her abdomen. There were several sinus tracts evident with perez brown mucousy drainage. There was no blood. There was no biliary colored fluid. EXTREMITIES: With peripheral edema. Able to move all extremities. LABORATORY STUDIES: ABGs on pO2 of 40, showed a pCO2 of 80, pCO2 of 52, pH 7.58, creatinine is 1.2, potassium 2.8. Alkaline phosphatase 149. Liver function test normal. Lactate 1.2. Hemoglobin 8.1, WBC 11.1, platelet count 372,000. Chest x-ray with right subclavian venous catheter in the cavoatrial junction, stable patchy right upper lobe and bilateral perihilar infiltrates. IMPRESSION: 1. A 63-year-old with abdominal wall abscess and sinus tracts. Suspecting complications from previous PEG tube or intestinal fistula. However, there has been no biliary colored fluid. She has been too big to scan. It has been very difficult to manage this situation. 2. Morbid obesity. 3. Chronic respiratory failure. 4. Diabetes. 5. Chronic lymphedema. RECOMMENDATIONS: Will continue IV antibiotic therapy. General Surgery is to evaluate for surgical intervention to explore the abdominal wall. Hopefully, we can establish where the fistula is emanating from. Suspect, will need further imaging studies with contrast. ��������������������������������������������� <ELECTRONICALLY SIGNED> ���������������������������������������� By: Bandar Gonzalez MD ��������������������������������������������� 11/12/186 01 0241 Bandar Gonzalez MD /nt
--- NOTE | 2018-11-13 03:37 | NUR ---
patient is alert. patient is nonverbal. patient has a peg tube drain and a j tube for nutrition and meds. tube feed jevity 1.5 at 50ml/hr. patient has a hutton. patient is q2turn. patient is nsr on tele. patient is q6h accucheck per tube feed. patient denies pain. patient is on vent/trach. patient is resting comfortably in bed. wcm. patient is progressing to goals.
[2018-11-13 04:26] VITALS: BP 111/40
[2018-11-13 07:55] VITALS: BP 133/64
--- NOTE | 2018-11-13 16:10 | NUR ---
EORN reviewed chart and spoke with nursing and attending physician. [facility] liaison planner met with pt's family this morning at length to discuss discharge plans. Pt's dtr/DPOA signed consents for pt to go be admitted on hospice when she is discharged from [facility]. Plan is for pt to d/c to pt's sister's home in [place]: [address] [address] on Saturday, 11/17. [facility] will deliver portable vent unit to pt's hospital room on Saturday. Pt will be on portable vent for ambulance transport to pt's sister's home. Once pt arrives at sister's home, family will spend with pt. [facility] (RN/RT/SW and conveyor weigher operator) will be present at time of pt's arrival. Pt will be palliatively extubated after family spends time with pt. Hospice staff will remain onsite. ERON updated attending physician. Outside the hospital DNR form on pt's chart for physician to sign. DPOA ppwk faxed to [facility] and placed on pt's chart. ERON updated [facility] liaison. ERON met with pt's dtrErika to confirm discharge plan. ERON is following to assist as needed with discharge planning.
[2018-11-13 16:21] VITALS: BP 129/70
[2018-11-13 19:49] VITALS: BP 136/58
--- NOTE | 2018-11-14 03:18 | NUR ---
PATIENT IS ALERT TO SELF AND SITUATION. PATIENT IS FORGETFULL AT TIMES. PATIENT IS INCONTIENT. PATIENT IS Q2TURN. PATIENT IS VENT TRACH. PATIENT HAS A GRANDA. PATIENT IS SINUS TACH ON TELE. PATIENT HAS A DRAINING PEG TUBE AND JEVITY 1.5 AT 50 IN J TUBE. PATIENT IS Q6H ACCUCHECK. PATIENTS PAIN IS TREATED WITH PAIN MEDICATION. PATIENT IS RESTING COMFORTABLY IN BED. WCM. PATIENT IS PROGRESSING TO GOALS.
[2018-11-14 06:04] VITALS: BP 134/61
[2018-11-14 07:41] VITALS: BP 116/61
[2018-11-14 11:38] VITALS: BP 136/59
--- NOTE | 2018-11-14 17:06 | NUR ---
ERON reviewed chart and spoke with nursing and attending physician. Plan is for pt to discharge to pt's sister's home in [place] on Saturday, with [facility]. ERON spoke with [facility] team: Joanna (SW), Tobin (RN), Amanda (registration) and Bri (RT). Request for ambulance to be arranged for Saturday at 1200. Portable vent to be delivered to pt's hospital room on Saturday. ERON spoke with [facility] to notify of long distance transportation. ERON faxed PCS form. ERON spoke with [facility] in dispatch and arranged ambulance transportation for 1200 on Saturday, 11/17. ERON spoke with pt's dtr, Erika, via phone to provide update. Erika is aware and agreeable with discharge plan. Will fax final discharge orders to [facility] office when available on Saturday. ERON is following to assist as needed with discharge planning.
[2018-11-14 17:54] VITALS: BP 131/61
[2018-11-14 17:56] VITALS: BP 131/61
--- NOTE | 2018-11-14 18:44 | NUR ---
pt is cantinuing on ventilator, A/C , fio2 35%, to keep 02sat 98-100%, pt can foloow commands, pt is contiuning IV ABX and wound care, pt's vs are stable, pt has medications for anxiety, pt is tolerate with tube feeding at 50ml/hr.
[2018-11-14 20:30] VITALS: BP 144/67
--- NOTE | 2018-11-15 03:16 | NUR ---
ASSESSMENT PT REMAIN ALERT AND ORIENT TIMES TWO, FORGETFUL AND CONFUSED. CONTINUOUSLY ASK FOR WATER. TF INFUSING WITHOUT DIFFICULTY. VSS, SR PER MONITOR. VENT SETTINGS CHANGED TO FIO2 OF 30% FROM 35%, TV 450, PEEP 5, AC 12. TRACH CARE PROVIDED. RIGHT SC PICC INTACT. JG TUBE PATENT. LUQ ABD WOUND NOTED WITH SCANT AMTS OF OOZING (REDDISH). GRANDA PATENT, SLOW PROGRESS TOWARDS DC GOALS, WILL CONTINUE TO MONITOR.
[2018-11-15 04:07] VITALS: BP 117/54
--- NOTE | 2018-11-15 06:27 | NUR ---
ASSESSMENT: PT'S JG TUBE APPEARED IF IT WAS PULLED OUT MORE THAN EARLIER. PT WAS AWAKE AND SHE WAS DOWNWARD TUGGING ON THE TUBE WITH THE BACK OF HER FORE ARMS. THE TF WAS INFUSING WITHOUT DIFFICULTY AND THE TUBE FLUSHED WELL. PT WAS JUST GIVEN HER SCHEDULED ATIVAN, SEVERAL TIMES PT WAS TOLD NOT TO REST HER ARMS ON THE T-TUBE AND TO STOP RUBBING AGAINST HER JG-TUBE. PT FOLLOW THESE SIMPLE COMMANDS FOR THE MOST PART BUT THIS MORNING THIS RN FELT THAT THE JG TUBE APPEARED FURTHER OUT. THIS RN WILL INFORM RN TROY OF THIS TO SEE IF IT LOOKS THE SAME YESTERDAY.
--- NOTE | 2018-11-15 07:31 | NUR ---
ASSESSMENT: PT'S TF WAS HELD, JG-TUBE WAS FLUSHED AND ON COMING RN TROY WAS NOTIFIED OF THIS RN'S FINDINGS IN REGARDS TO TUBE BEING PULLED OUT FURTHER THAN NORMAL.
[2018-11-15 07:58] VITALS: BP 147/76
[2018-11-15 11:53] VITALS: BP 132/74
--- NOTE | 2018-11-15 15:34 | NUR ---
PTis A&OX2 (person and place), pt is confused at time, pt is continuing ventlitor A/C , with o2 30%, to keep o2sat at 95-100%, pt's vs are stable, pt has KUB to check J-G tube placement at this morning( J-G tube come part come out),results show J-G tube in correct place, pt is tolerate tube feeding at 50ml/hr, G tube is working to D/D , pt is continuing IV abx and wound care, pt has medications for pain and anxiety, pt 's family stay pt's bedside now.
[2018-11-15 16:20] VITALS: BP 121/73
[2018-11-15 19:10] VITALS: BP 139/70
[2018-11-16 03:38] VITALS: BP 113/53
--- NOTE | 2018-11-16 03:52 | NUR ---
PATIENT IS ALERT TO SELF AND SITUATION. PATIENT IS ON THE VENT/TRACH (CHRONIC). PATIENT IS ON TUBE FEEDING AND Q6H ACCUCHECK. PATIENT HAS DRAIN TO PEG TUBE AND FEEDING TO J TUBE. PATIENT IS Q2 TURN. PATIENT HAS A GRANDA. PATIENT DRESSING WERE CHANGED. PATIENT IS ON CONTINOUS PULSE OX. PATIENTS PAIN IS CONTROLLED WITH PAIN MEDICATION. PATIENT IS RESTING COMFORTABLY IN BED. [facility]. PATIENT IS PENDING DISCHARGE ON SATURDAY. PENDING VENT DELIVERY TO HOME.
[2018-11-16 07:15] VITALS: BP 144/69
[2018-11-16 15:42] VITALS: BP 126/60
--- NOTE | 2018-11-16 18:25 | NUR ---
pt is A&OX2 ( person and place), pt is continuing ventilator A/C ,FIO2 30%, PT'vs and o2sat are stable, pt is tolerate tube feeding 50ml/hr, pt has medications for anxiety, pt has plan tomorrow to D/C to pt's sister's home with hospice service, pt's portable vent has be delivered at pt's bedside, RN will report to next shift to keep eye on pt and D/C plan.
[2018-11-16 20:15] VITALS: BP 153/81
[2018-11-17 04:32] VITALS: BP 134/68
--- NOTE | 2018-11-17 06:00 | NUR ---
PT REMAINS TRACHED AND VENTED AND A DNR WILL TRANSFER HOME ON HOSPICE TODAY PT RESTING QUIETLY AT PRESENT. WILL CONT TO MONITOR.
[2018-11-17 07:47] VITALS: BP 116/59
--- NOTE | 2018-11-17 08:30 | NUR ---
[facility] called and wanted to keep picc line in place for ambulance ride. DR PAZ NOTIFIED AND LEFT ORDERS TO KEEP PICC LINE IN AND TO GIVE 1 MG ATIVAN IVP BEFORE PT LEAVES TO GO HOME.
[2018-11-17 09:40] VITALS: BP 116/59
--- NOTE | 2018-11-17 12:38 | NUR ---
PATIENT ON THE VENT PER TRACH, VITALS STABLE. MEDICATED FOR PAIN WITH PRN MEDS AND FOR ANXIETY WITH SCHEDULED MEDS. ORDERS IN THE CHART TO DC HOME WITH HOSPICE. PATIENT PICKED UP BY EMS AT 1220 AND ACCOMPANIED BY HOSPICE RT.
--- NOTE | 2018-11-17 13:40 | NUR ---
DISCHARGE NOTE: ERON reviewed chart and spoke with nursing and attending physician. Pt is stable for discharge today with [facility]. Portable vent in pt's room. ERON spoke with pt's dtr, Erika, via phone, who confirmed that the DME was delivered to pt's sister's home yesterday. No family present at bedside. SW left voice message for pt's sister, Cynthia, to confirm plan as well. ERON met with [facility] and [facility] at bedside. Pt placed on portable vent this morning. ERON confirmed with [facility] that pt will be transported around 1200. ERON faxed discharge orders/summary to [facility] office and spoke with NALLELY Rudd at [facility]. All in place for pt to be received at her sister's home. [facility] arranged for a professional biological photographer to take family photos when pt arrives at the house. [facility] to make pt's family a memory book. [facility] team will be present. ERON updated [facility] liaison. Outside the Hospital DNR form on the chart and original will go with pt. No additional SW needs identified at this time. Case closed.
== END 2018-11-17 12:45 | disposition hospice, home (50) | DRG 207 ==
LOC: 4E 16:27 → 4S 11-11 08:06 → 3W 11-13 13:31
PROVIDERS: Internal Medicine Pulmonary Disease; ADMIT Internal Medicine Geriatric Medicine
PROC: 5A1955Z Respiratory Ventilation, Greater than 96 Consecutive Hours (ICD-10-PCS; principal; 2018-11-11)
DX: J96.21 Acute and chronic respiratory failure with hypoxia (principal); E43 Unspecified severe protein-calorie malnutrition; G93.41 Metabolic encephalopathy; K94.23 Gastrostomy malfunction; L02.211 Cutaneous abscess of abdominal wall; Z99.11 Dependence on respirator [ventilator] status; Z68.44 Body mass index [BMI] 60.0-69.9, adult; K63.2 Fistula of intestine; E66.2 Morbid (severe) obesity with alveolar hypoventilation; N17.9 Acute kidney failure, unspecified; G72.81 Critical illness myopathy; K94.22 Gastrostomy infection; J96.22 Acute and chronic respiratory failure with hypercapnia; K44.9 Diaphragmatic hernia without obstruction or gangrene; Z51.5 Encounter for palliative care; E87.6 Hypokalemia; N18.9 Chronic kidney disease, unspecified; Y83.3 Surgical operation with formation of external stoma as the cause of abnormal reaction of the patient, or of later complication, without mention of misadventure at the time of the procedure; D63.8 Anemia in other chronic diseases classified elsewhere; Z93.0 Tracheostomy status; Y92.89 Other specified places as the place of occurrence of the external cause; Z79.899 Other long term (current) drug therapy
CPT/HCPCS: 10100; 10102; 10879